=== PATIENT | female | born 1935 | race Caucasian/White ===

== ENCOUNTER 2021-03-03 16:03 | Emergency (ER) | payer MEDICARE ==
[2021-03-03] MEDS ORDERED: Ondansetron 4 MG Tab.DIS PO ONE ×2 (16:04→16:29)
[2021-03-03] MEDS ORDERED: Acetaminophen/HYDROcodone 325-5 MG Tab PO ONE ×3 (16:04→17:31)
--- NOTE | 2021-03-03 16:21 | EDM.PDOC ---
ED HPI GENERAL MEDICAL PROBLEM - General Chief Complaint: Back Pain or Injury Stated Complaint: BACK PAIN Time Seen by Provider: 03/03/21 16:20 Source of Information: Reports: Patient, Old Records, RN History Limitations: Reports: No Limitations - History of Present Illness INITIAL COMMENTS - FREE TEXT/NARRATIVE: 85 yo female had what sounds like a syncopal spell in her kitchen this past Thursday. She incurred pain to her R low back in the fall. She went to Dr. Harding, her primary care provider, on when an X-ray was done. The patients describes what sounds like a mild compression fx as the diagnosis. She was told to take OTC agents which she has been doing without relief. She has not been eating much since the fall and has some mild nausea. She has no pain at rest, but quite a bit of pain with movement. She is here with a friend. Onset: Sudden Onset Date: 02/25/21 Duration: Day(s):, Waxing/Waning Location: Reports: Back (low) Quality: Reports: Ache Severity: Moderate Improves with: Reports: Rest (lying makes the pain go away) Worsens with: Reports: Movement (especially standing) Context: Reports: Trauma Associated Symptoms: Reports: Nausea/Vomiting (no vomiting), Syncope (possible syncope as a cause of the fall). 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 Denies: Diaphoresis HEENT: Reports: No Symptoms Respiratory: Reports: No Symptoms Cardiovascular: Reports: No Symptoms Endocrine: Reports: No Symptoms GI/Abdominal: Reports: Nausea. Denies: Diarrhea, Vomiting : Reports: No Symptoms Musculoskeletal: Reports: Back Pain Skin: Reports: No Symptoms Neurological: Reports: No Symptoms Psychiatric: Reports: No Symptoms ED EXAM,LOWER BACK PAIN/INJURY - Physical Exam Exam: See Below Exam Limited By: No Limitations General Appearance: Alert Eye Exam: Bilateral Eye: Normal Inspection Ears: Normal External Exam, Normal Canal, Hearing Grossly Normal, Normal TMs Nose: Normal Inspection, No Blood Throat/Mouth: Normal Inspection, Normal Lips, Normal Oropharynx, Normal Voice, No Airway Compromise Head: Atraumatic, Normocephalic Neck: Normal Inspection Respiratory/Chest: No Respiratory Distress, Lungs Clear, Normal Breath Sounds, No Accessory Muscle Use Cardiovascular: Regular Rate, Rhythm, No Edema GI/Abdominal: Normal Bowel Sounds, Soft, Non-Tender, No Distention Back Exam: Normal Inspection, Other (minimal vertebral tenderness). No: CVA Tenderness (R), CVA Tenderness (L) Extremities: Normal Inspection, No Pedal Edema. No: Pedal Edema, Limited Range of Motion, Increased Warmth, Redness Neurological: Alert, Normal Mood/Affect, Normal Dorsiflexion, CN II-XII Intact, No Motor/Sensory Deficits, Oriented x 3 Psychiatric: Normal Affect, Normal Mood Skin Exam: Warm, Dry, Intact, Normal Color, No Rash Course - Vital Signs Last Recorded V/S: Last Vital Signs Temp 36.1 C 03/03/21 16:03 Pulse 63 03/03/21 17:35 Resp 18 03/03/21 16:03 BP 157/73 H 03/03/21 17:35 Pulse Ox 94 L 03/03/21 16:03 - Orders/Labs/Meds Orders: Active Orders 24 hr Category Date Time Status Pelvis 1V or 2V [CR] Stat Exams 03/03/21 17:41 Taken CULTURE URINE [RM] Stat Lab 03/03/21 18:15 Received Labs: Laboratory Tests 03/03/21 03/03/21 03/03/21 Range/Units 16:45 16:45 16:45 WBC 9.4 (3.0-10.3) x10-3/uL RBC 4.38 (3.60-5.20) x10(6)uL Hgb 13.1 (11.4-15.5) g/dL Hct 40.4 (34.2-48.2) % MCV 92.2 (76.7-100.5) fL MCH 29.8 (23.9-33.9) pg MCHC 32.3 (31.9-34.8) g/dL RDW 12.8 (12.3-16.5) % Plt Count 269 (151-488) x10(3)uL Sodium 140 (135-145) mmol/L Potassium 4.6 (3.5-5.3) mmol/L Chloride 102 (100-110) mmol/L Carbon Dioxide 26 (21-32) mmol/L BUN 21 H (7-18) mg/dL Creatinine 1.2 H (0.55-1.02) mg/dL Est Cr Clr Drug Dosing TNP Estimated GFR (MDRD) 43 L (>60) BUN/Creatinine Ratio 17.5 (9-20) Glucose 114 (80-116) mg/dL Calcium 8.8 (8.6-10.2) mg/dL Total Bilirubin 0.5 (0.1-1.3) mg/dL AST 13 (5-25) IU/L ALT 14 (12-36) U/L Alkaline Phosphatase 74 (56-112) IU/L Troponin I (4.0-60.3) pg/mL C-Reactive Protein 2.4 H (0.5-0.9) mg/dL Total Protein 7.1 (6.0-8.0) g/dL Albumin 3.1 L (3.2-4.6) g/dL Globulin 4.0 g/dL Albumin/Globulin Ratio 0.8 Urine Color (YELLOW) Urine Appearance (CLEAR) Urine pH (5.0-6.5) Ur Specific [place] (1.010-1.025) Urine Protein (NEGATIVE) mg/dL Urine Glucose (UA) (NORMAL) mg/dL Urine Ketones (NEGATIVE) mg/dL Urine Occult Blood (NEGATIVE) Urine Nitrite (NEGATIVE) Urine Bilirubin (NEGATIVE) Urine Urobilinogen (NEGATIVE) mg/dL Ur Leukocyte Esterase (NEGATIVE) Urine WBC (0-5) Ur Squamous Epith Cells (NS,R,O) Urine Bacteria (NS) 03/03/21 03/03/21 Range/Units 16:45 18:15 WBC (3.0-10.3) x10-3/uL RBC (3.60-5.20) x10(6)uL Hgb (11.4-15.5) g/dL Hct (34.2-48.2) % MCV (76.7-100.5) fL MCH (23.9-33.9) pg MCHC (31.9-34.8) g/dL RDW (12.3-16.5) % Plt Count (151-488) x10(3)uL Sodium (135-145) mmol/L Potassium (3.5-5.3) mmol/L Chloride (100-110) mmol/L Carbon Dioxide (21-32) mmol/L BUN (7-18) mg/dL Creatinine (0.55-1.02) mg/dL Est Cr Clr Drug Dosing Estimated GFR (MDRD) (>60) BUN/Creatinine Ratio (9-20) Glucose (80-116) mg/dL Calcium (8.6-10.2) mg/dL Total Bilirubin (0.1-1.3) mg/dL AST (5-25) IU/L ALT (12-36) U/L Alkaline Phosphatase (56-112) IU/L Troponin I 7.5 (4.0-60.3) pg/mL C-Reactive Protein (0.5-0.9) mg/dL Total Protein (6.0-8.0) g/dL Albumin (3.2-4.6) g/dL Globulin g/dL Albumin/Globulin Ratio Urine Color Yellow (YELLOW) Urine Appearance Slightly cloudy (CLEAR) Urine pH 5.0 (5.0-6.5) Ur Specific [place] 1.020 (1.010-1.025) Urine Protein Negative (NEGATIVE) mg/dL Urine Glucose (UA) Normal (NORMAL) mg/dL Urine Ketones 15 H (NEGATIVE) mg/dL Urine Occult Blood Negative (NEGATIVE) Urine Nitrite Negative (NEGATIVE) Urine Bilirubin Small H (NEGATIVE) Urine Urobilinogen Normal (NEGATIVE) mg/dL Ur Leukocyte Esterase Large H (NEGATIVE) Urine WBC 20-30 H (0-5) Ur Squamous Epith Cells Few H (NS,R,O) Urine Bacteria Moderate H (NS) Meds: Medications Discontinued Medications Generic Name Dose Route Start Last Admin Trade Name Freq PRN Reason Stop Dose Admin Hydrocodone Bitart/Acetaminophen 1 tab 03/03/21 16:20 03/03/21 16:28 Acetaminophen/Hydrocodone 325-5 Mg Tab PO 03/03/21 16:21 1 tab ONETIME ONE Administration Hydrocodone Bitart/Acetaminophen 1 tab 03/03/21 17:31 03/03/21 17:46 Acetaminophen/Hydrocodone 325-5 Mg Tab PO 03/03/21 17:32 1 tab ONETIME ONE Administration Ketorolac Tromethamine 30 mg 03/03/21 17:43 03/03/21 18:19 Ketorolac 30 Mg/Ml Sdv IM 03/03/21 17:44 30 mg ONETIME ONE Administration Ondansetron HCl 4 mg 03/03/21 16:29 03/03/21 16:34 Ondansetron 4 Mg Tab.Dis PO 03/03/21 16:30 4 mg ONETIME ONE Administration - Radiology Interpretation Free Text/Narrative:: pelvis X-ray-neg Departure - Departure Time of Disposition: 19:00 Disposition: Home, Self-Care 01 Condition: Fair Clinical Impression: Cystitis Low back pain Qualifiers: Chronicity: unspecified Back pain laterality: right Sciatica presence: without sciatica Qualified Code(s): M54.5 - Low back pain - Discharge Information *PRESCRIPTION DRUG MONITORING PROGRAM REVIEWED*: Not Applicable *COPY OF PRESCRIPTION DRUG MONITORING REPORT IN PATIENT [place]ICK[place]: Not Applicable Instructions: Acute Back Pain, Adult Referrals: Braulio Harding MD [Primary Care Provider] - Forms: ED Department Discharge Additional Instructions: Take ibuprofen 400 mg every 6 hrs with food for pain relief starting after midnight tonight. Add either acetaminophen OR Imogene for added relief. Recheck with Dr. Harding in 1-2 days. Drink ample fluids and eat plenty of fiber to prevent constipation from your pain meds. Take Zofran as needed for nausea control. Your Covid test and urine culture will be back in about 2 days. Use a walker to make getting around easier. Sepsis Event Note (ED) - Focused Exam Vital Signs: Vital Signs Temp Pulse Resp BP Pulse Ox 03/03/21 17:35 63 157/73 H 03/03/21 16:03 36.1 C 88 18 200/93 H 94 L - My Orders Last 24 Hours: My Active Orders 03/03/21 17:41 Pelvis 1V or 2V [CR] Stat 03/03/21 18:15 CULTURE URINE [RM] Stat - Assessment/Plan Last 24 Hours: My Active Orders 03/03/21 17:41 Pelvis 1V or 2V [CR] Stat 03/03/21 18:15 CULTURE URINE [RM] Stat
[2021-03-03] MEDS ORDERED: Ketorolac 30 MG/ML SDV IM ONE (17:43)
--- NOTE | 2021-03-04 12:04 | CR ---
PELVIS INDICATION: Fell Thursday - one week prior with pain with weightbearing right buttock area. 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 Sclerotic density in the left femoral neck most likely represents a benign bone island. Sacroiliac joints and hip joints appear to be intact with only very minimal degenerative changes at the left hip joint. An acute fracture or dislocation was not identified. IMPRESSION: No acute fracture or dislocation. If symptoms persist - if occult fracture site is suspected clinically, CT or possibly nuclear bone imaging may be helpful for further evaluation. [id number]
== END 2021-03-03 19:35 | disposition home or self-care (01) ==
LOC: FB.ED 16:03
DX: N30.90 Cystitis, unspecified without hematuria (principal)
CPT/HCPCS: 36415; 72170; 80053; 81001; 84484; 85027; 86140; 87086; 96372; 99283; A9270; J1885

== ENCOUNTER 2021-04-01 14:48 | Observation (INO) | payer MEDICARE ==
[2021-04-01] MEDS ORDERED: Sodium Chloride 0.9% 1,000 ML IV ONE ×2 (16:48→22:11)
[2021-04-01] MEDS ORDERED: Acetaminophen 500 MG Tab PO ONE (16:57)
--- NOTE | 2021-04-01 20:44 | EDM.PDOC ---
ED HPI GENERAL MEDICAL PROBLEM - General Chief Complaint: Neurological Problem Stated Complaint: DECREASED LEVEL OF CONSCIOUSNESS Time Seen by Provider: 04/01/21 15:15 Source of Information: Reports: Patient, Family History Limitations: Reports: No Limitations - History of Present Illness INITIAL COMMENTS - FREE TEXT/NARRATIVE: c/o back pain pt here with her sister, her brother Steven has POA, I spoke with Steven at [phone] and he agreed with plan pt had lived in her own home, she had a compression fx identified at L1 at [facility] on 02-28-21 had been in her own home, - Related Data Allergies Allergy/AdvReac Type Severity Reaction Status Date / Time No Known Allergies Allergy Verified 04/01/21 15:05 Home Meds: Home Meds Acetaminophen/HYDROcodone [HYDROcodone-Acetaminophen 5-325 MG *] 1 - 2 tab PO Q6H PRN #13 each 03/03/21 [Rx] Ondansetron [Zofran ODT] 4 mg PO Q6H PRN #5 tab.dis 03/03/21 [Rx] Acetaminophen [Tylenol] 650 mg PO Q4H PRN 04/01/21 [History] Aspirin [Halfprin] 81 mg PO DAILY 04/01/21 [History] Calcium Carbonate [Tums] 500 mg PO DAILY 04/01/21 [History] Calcium Cit/Mgox/Vit D3/B6/Min [Calcium Citrate Plus Tablet] 950 mg PO BID 04/01/21 [History] Cyanocobalamin (Vitamin B-12) [B-12] 1,000 mcg PO DAILY 04/01/21 [History] Diclofenac Sodium [Voltaren 1% Gel] 4 gm TOP QID 04/01/21 [History] Famotidine 40 mg PO DAILY 04/01/21 [History] Fish Oil/Borage/Flax/Om3,6,9 1 [[place] 3-6-9 1,200 mg Softgel] 1,000 mg PO DAILY 04/01/21 [History] Flaxseed/Omega3,6,9/Fatty Acid [Flax Seed Oil 1,300 mg Softgel] 1,000 mg PO DAILY 04/01/21 [History] Furosemide 20 mg PO DAILY 04/01/21 [History] Gabapentin [Neurontin] 100 mg PO DAILY 04/01/21 [History] Levothyroxine [Synthroid] 50 mcg PO ACBREAKFAST 04/01/21 [History] Mirtazapine [Remeron] 15 mg PO BEDTIME 04/01/21 [History] Potassium Chloride 20 meq PO DAILY 04/01/21 [History] Simvastatin [Zocor] 20 mg PO BEDTIME 04/01/21 [History] amLODIPine [Norvasc] 2.5 mg PO BEDTIME 04/01/21 [History] lisinopriL [Lisinopril] 20 mg PO DAILY 04/01/21 [History] polyethylene glycoL 3350 [MiraLAX] 17 gm PO DAILY 04/01/21 [History] Past Medical History HEENT History: Reports: None Cardiovascular History: Reports: High Cholesterol, Hypertension Respiratory History: Reports: None Gastrointestinal History: Reports: GERD Genitourinary History: Reports: None [employer] History: Reports: None Musculoskeletal History: Reports: Fracture, Osteoporosis, Other (See Below) Other Musculoskeletal History: vertebre compression fracture Neurological History: Reports: None Psychiatric History: Reports: None Endocrine/Metabolic History: Reports: Hypothyroidism Hematologic History: Reports: None Immunologic History: Reports: None Oncologic (Cancer) History: Reports: None Dermatologic History: Reports: None - Past Surgical History Head Surgeries/Procedures: Reports: None HEENT Surgical History: Reports: None Cardiovascular Surgical History: Reports: None Respiratory Surgical History: Reports: None GI Surgical History: Reports: None Female Surgical History: Reports: None Endocrine Surgical History: Reports: None Neurological Surgical History: Reports: None Oncologic Surgical History: Reports: None Dermatological Surgical History: Reports: None Social & Family History - Tobacco Use Tobacco Use Status *Q: Former Tobacco User Used Tobacco, but Quit: Yes Month/Year Tobacco Last Used: 1999 - Caffeine Use Caffeine Use: Reports: Coffee, Soda - Recreational Drug Use Recreational Drug Use: No ED ROS GENERAL - Review of Systems Review Of Systems: See Below Constitutional: Reports: Decreased Appetite HEENT: Reports: No Symptoms Respiratory: Reports: No Symptoms Cardiovascular: Reports: No Symptoms Endocrine: Reports: No Symptoms GI/Abdominal: Reports: No Symptoms : Reports: No Symptoms Musculoskeletal: Reports: Back Pain Skin: Reports: No Symptoms Neurological: Reports: No Symptoms Psychiatric: Reports: No Symptoms Hematologic/Lymphatic: Reports: No Symptoms Immunologic: Reports: No Symptoms ED EXAM, GENERAL - Physical Exam Exam: See Below Exam Limited By: Altered Mental Status General Appearance: Alert, Other (very dehydrated with marked shrunken skin, irritable and disagreeable and argumentative but did not try to move independently) Nose: Normal Inspection Throat/Mouth: Normal Voice, No Airway Compromise Head: Atraumatic, Normocephalic Neck: Normal Inspection, Supple, Non-Tender, Full Range of Motion Respiratory/Chest: No Respiratory Distress, Lungs Clear, Chest Non-Tender Cardiovascular: Regular Rate, Rhythm, No Edema, Other (2/6 SHERINE at LSB, quiet precordium) GI/Abdominal: Soft, Non-Tender, No Organomegaly, No Distention Back Exam: Other (nonspecific mild tender across upper back, no definite tender of t-spine, 1+ tender at L1) Neurological: Alert, CN II-XII Intact, No Motor/Sensory Deficits Psychiatric: Other (mild agitation without hostility, cognitive deficits with memory problems) Skin Exam: Warm, Dry, Intact, Normal Color, No Rash Lymphatic: No Adenopathy Course - Vital Signs Last Recorded V/S: Last Vital Signs Temp 36.1 C 04/02/21 11:00 Pulse 84 04/02/21 11:00 Resp 18 04/02/21 11:00 BP 138/69 04/02/21 11:00 Pulse Ox 94 L 04/02/21 11:00 - Orders/Labs/Meds Orders: Active Orders 24 hr Category Date Time Status CULTURE URINE [RM] Stat Lab 04/02/21 09:17 Ordered D5 1/2 NS w/ 20 mEq/L KCl 1,000 ml Med 04/02/21 08:15 Ordered IV ASDIRECTED Dextrose 5 %-0.2 % NaCl [Dextrose 5%-1/4 NS] 1,000 ml Med 04/02/21 09:15 Ordered IV ASDIRECTED Medication Orders Potassium Chloride/Dextrose/Sod Cl (D5 1/2 Ns W/ 20 Meq/L Kcl) 1,000 mls @ 50 mls/hr IV ASDIRECTED KILLIAN Last Admin: 04/02/21 08:53 Dose: 50 mls/hr Documented by: MICAH Dextrose/Sodium Chloride (Dextrose 5%-1/4 Ns) 1,000 mls @ 75 mls/hr IV ASDIRECTED KILLIAN Labs: Laboratory Tests 04/01/21 04/01/21 04/01/21 Range/Units 17:21 17:21 17:21 WBC 15.9 H (3.0-10.3) x10-3/uL RBC 4.80 (3.60-5.20) x10(6)uL Hgb 14.3 (11.4-15.5) g/dL Hct 44.3 (34.2-48.2) % MCV 92.3 (76.7-100.5) fL MCH 29.8 (23.9-33.9) pg MCHC 32.2 (31.9-34.8) g/dL RDW 14.0 (12.3-16.5) % Plt Count 325 (151-488) x10(3)uL MPV 8.7 (7.1-12.4) fL Neut % (Auto) (30.8-76.2) % Lymph % (Auto) (18.4-52.1) % [place] % (Auto) (4.4-15.7) % Eos % (Auto) (0.6-8.1) % Baso % (Auto) (0.2-1.5) % Neut # (Auto) (1.5-6.3) x10-3/uL Lymph # (Auto) (1.0-4.4) x10-3/uL [place] # (Auto) (0.3-1.0) x10-3/uL Eos # (Auto) (0.0-0.8) x10-3/uL Baso # (Auto) (0.0-0.1) x10-3/uL Add Manual Diff Yes Neutrophils % (Manual) 82 (46-82) % Band Neutrophils % 2 (0-6) % Lymphocytes % (Manual) 10 L (13-37) % Monocytes % (Manual) 6 (4-12) % Sodium 141 (135-145) mmol/L Potassium 5.3 (3.5-5.3) mmol/L Chloride 103 (100-110) mmol/L Carbon Dioxide 25 (21-32) mmol/L BUN 60 H D (7-18) mg/dL Creatinine 2.7 H* (0.55-1.02) mg/dL Est Cr Clr Drug Dosing TNP Estimated GFR (MDRD) 17 L (>60) BUN/Creatinine Ratio 22.2 H (9-20) Glucose 106 (80-116) mg/dL Calcium 10.4 H (8.6-10.2) mg/dL Total Bilirubin 0.7 (0.1-1.3) mg/dL AST 18 D (5-25) IU/L ALT 26 D (12-36) U/L Alkaline Phosphatase 109 (56-112) IU/L Troponin I (4.0-60.3) pg/mL C-Reactive Protein 1.5 H (0.5-0.9) mg/dL Total Protein 7.2 (6.0-8.0) g/dL Albumin 3.3 (3.2-4.6) g/dL Globulin 3.9 g/dL Albumin/Globulin Ratio 0.9 Urine Color (YELLOW) Urine Appearance (CLEAR) Urine pH (5.0-6.5) Ur Specific [place] (1.010-1.025) Urine Protein (NEGATIVE) mg/dL Urine Glucose (UA) (NORMAL) mg/dL Urine Ketones (NEGATIVE) mg/dL Urine Occult Blood (NEGATIVE) Urine Nitrite (NEGATIVE) Urine Bilirubin (NEGATIVE) Urine Urobilinogen (NEGATIVE) mg/dL Ur Leukocyte Esterase (NEGATIVE) Urine WBC (0-5) Ur Squamous Epith Cells (NS,R,O) Urine Bacteria (NS) SARS-CoV-2 RNA (YELITZA) (NEGATIVE) 04/01/21 04/01/21 04/02/21 Range/Units 17:21 18:25 08:15 WBC (3.0-10.3) x10-3/uL RBC (3.60-5.20) x10(6)uL Hgb (11.4-15.5) g/dL Hct (34.2-48.2) % MCV (76.7-100.5) fL MCH (23.9-33.9) pg MCHC (31.9-34.8) g/dL RDW (12.3-16.5) % Plt Count (151-488) x10(3)uL MPV (7.1-12.4) fL Neut % (Auto) (30.8-76.2) % Lymph % (Auto) (18.4-52.1) % [place] % (Auto) (4.4-15.7) % Eos % (Auto) (0.6-8.1) % Baso % (Auto) (0.2-1.5) % Neut # (Auto) (1.5-6.3) x10-3/uL Lymph # (Auto) (1.0-4.4) x10-3/uL [place] # (Auto) (0.3-1.0) x10-3/uL Eos # (Auto) (0.0-0.8) x10-3/uL Baso # (Auto) (0.0-0.1) x10-3/uL Add Manual Diff Neutrophils % (Manual) (46-82) % Band Neutrophils % (0-6) % Lymphocytes % (Manual) (13-37) % Monocytes % (Manual) (4-12) % Sodium (135-145) mmol/L Potassium (3.5-5.3) mmol/L Chloride (100-110) mmol/L Carbon Dioxide (21-32) mmol/L BUN (7-18) mg/dL Creatinine (0.55-1.02) mg/dL Est Cr Clr Drug Dosing Estimated GFR (MDRD) (>60) BUN/Creatinine Ratio (9-20) Glucose (80-116) mg/dL Calcium (8.6-10.2) mg/dL Total Bilirubin (0.1-1.3) mg/dL AST (5-25) IU/L ALT (12-36) U/L Alkaline Phosphatase (56-112) IU/L Troponin I 16.6 (4.0-60.3) pg/mL C-Reactive Protein (0.5-0.9) mg/dL Total Protein (6.0-8.0) g/dL Albumin (3.2-4.6) g/dL Globulin g/dL Albumin/Globulin Ratio Urine Color Yellow (YELLOW) Urine Appearance Cloudy (CLEAR) Urine pH 5.0 (5.0-6.5) Ur Specific [place] 1.020 (1.010-1.025) Urine Protein Negative (NEGATIVE) mg/dL Urine Glucose (UA) Normal (NORMAL) mg/dL Urine Ketones 15 H (NEGATIVE) mg/dL Urine Occult Blood Negative (NEGATIVE) Urine Nitrite Negative (NEGATIVE) Urine Bilirubin Small H (NEGATIVE) Urine Urobilinogen Normal (NEGATIVE) mg/dL Ur Leukocyte Esterase Large H (NEGATIVE) Urine WBC 30-40 H (0-5) Ur Squamous Epith Cells Moderate H (NS,R,O) Urine Bacteria Many H (NS) SARS-CoV-2 RNA (YELITZA) Negative (NEGATIVE) 04/02/21 04/02/21 04/02/21 Range/Units 08:30 08:30 08:30 WBC 12.5 H (3.0-10.3) x10-3/uL RBC 4.47 (3.60-5.20) x10(6)uL Hgb 13.4 (11.4-15.5) g/dL Hct 41.6 (34.2-48.2) % MCV 93.2 (76.7-100.5) fL MCH 30.1 (23.9-33.9) pg MCHC 32.3 (31.9-34.8) g/dL RDW 13.6 (12.3-16.5) % Plt Count 261 (151-488) x10(3)uL MPV 8.4 (7.1-12.4) fL Neut % (Auto) 80.8 H (30.8-76.2) % Lymph % (Auto) 10.5 L (18.4-52.1) % [place] % (Auto) 7.6 (4.4-15.7) % Eos % (Auto) 0.7 (0.6-8.1) % Baso % (Auto) 0.4 (0.2-1.5) % Neut # (Auto) 10.1 H (1.5-6.3) x10-3/uL Lymph # (Auto) 1.3 (1.0-4.4) x10-3/uL [place] # (Auto) 0.9 (0.3-1.0) x10-3/uL Eos # (Auto) 0.1 (0.0-0.8) x10-3/uL Baso # (Auto) 0.0 (0.0-0.1) x10-3/uL Add Manual Diff Neutrophils % (Manual) (46-82) % Band Neutrophils % (0-6) % Lymphocytes % (Manual) (13-37) % Monocytes % (Manual) (4-12) % Sodium 145 (135-145) mmol/L Potassium 4.7 (3.5-5.3) mmol/L Chloride 109 D (100-110) mmol/L Carbon Dioxide 22 (21-32) mmol/L BUN 60 H (7-18) mg/dL Creatinine 2.4 H* (0.55-1.02) mg/dL Est Cr Clr Drug Dosing TNP Estimated GFR (MDRD) 19 L (>60) BUN/Creatinine Ratio 25.0 H (9-20) Glucose 84 (80-116) mg/dL Calcium 9.0 (8.6-10.2) mg/dL Total Bilirubin (0.1-1.3) mg/dL AST (5-25) IU/L ALT (12-36) U/L Alkaline Phosphatase (56-112) IU/L Troponin I (4.0-60.3) pg/mL C-Reactive Protein 1.5 H (0.5-0.9) mg/dL Total Protein (6.0-8.0) g/dL Albumin (3.2-4.6) g/dL Globulin g/dL Albumin/Globulin Ratio Urine Color (YELLOW) Urine Appearance (CLEAR) Urine pH (5.0-6.5) Ur Specific [place] (1.010-1.025) Urine Protein (NEGATIVE) mg/dL Urine Glucose (UA) (NORMAL) mg/dL Urine Ketones (NEGATIVE) mg/dL Urine Occult Blood (NEGATIVE) Urine Nitrite (NEGATIVE) Urine Bilirubin (NEGATIVE) Urine Urobilinogen (NEGATIVE) mg/dL Ur Leukocyte Esterase (NEGATIVE) Urine WBC (0-5) Ur Squamous Epith Cells (NS,R,O) Urine Bacteria (NS) SARS-CoV-2 RNA (YELITZA) (NEGATIVE) Meds: Medications Generic Name Dose Route Start Last Admin Trade Name Freq PRN Reason Stop Dose Admin Potassium Chloride/Dextrose/Sod Cl 1,000 mls @ 50 mls/hr 04/02/21 08:15 04/02/21 08:53 D5 1/2 Ns W/ 20 Meq/L Kcl IV 50 mls/hr ASDIRECTED KILLIAN Administration Dextrose/Sodium Chloride 1,000 mls @ 75 mls/hr 04/02/21 09:15 Dextrose 5%-1/4 Ns IV ASDIRECTED KILLIAN Discontinued Medications Generic Name Dose Route Start Last Admin Trade Name Freq PRN Reason Stop Dose Admin Acetaminophen 1,000 mg 04/01/21 16:57 04/01/21 18:30 Acetaminophen 500 Mg Tab PO 04/01/21 16:58 1,000 mg ONETIME ONE Administration Amlodipine Besylate 2.5 mg 04/02/21 08:56 04/02/21 09:38 Amlodipine 2.5 Mg Tab PO 04/02/21 08:57 Not Given ONETIME ONE Aspirin 81 mg 04/02/21 08:56 04/02/21 09:37 Aspirin 81 Mg Tab.Chew PO 04/02/21 08:57 81 mg ONETIME ONE Administration Ceftriaxone Sodium 1 gm 04/02/21 09:17 04/02/21 09:37 Ceftriaxone 1 Gm Vial IVPUSH 04/02/21 09:18 1 gm NOW ONE Administration Famotidine 40 mg 04/02/21 08:56 04/02/21 09:37 Famotidine 20 Mg Tab PO 04/02/21 08:57 40 mg ONETIME ONE Administration Sodium Chloride 1,000 mls @ 999 mls/hr 04/01/21 16:48 04/01/21 18:30 Normal Saline IV 04/01/21 17:48 999 mls/hr .BOLUS ONE Administration Sodium Chloride 1,000 mls @ 999 mls/hr 04/01/21 22:11 04/02/21 06:54 Normal Saline IV 04/01/21 23:11 999 mls/hr .BOLUS ONE Administration - Re-Assessments/Exams Free Text/Narrative Re-Assessment/Exam: 04/01/21 22:15 pt with c/o upper thoracic pain at ~T3 or T4 CT of t-spine showed no compression fx, however there is ~50% compression fx of L1 that has progressed somewhat c/w previous per Dr Valdez pt goes to [facility], on their wait list as there are no open meds pt insisted on going home although she is quite dehydrated with creat 1.2 last month, now 2.7 today, considerable dec'd skin turgor, not able to produce a urine, pt not able to care for herself and not able to eat and drink reluctantly, did agree to stay here for now for further treatment will keep pt on an extended ED stay while a bed will hopefully open up at [facility], no open beds here, no open beds at [facility] 04/02/21 12:00 pt on wait list at [facility] still, however MRYA Barillas called [facility] and they said that there is "no way" that pt would be able to be transferred today she did have some mild sundowning during the night, slept most of the night pt not willing to eat bfast or lunch BUN/creat slightly better today c/w yesterday after 2 liter NS, will continue maintenance fluids d/w hospitalist Dr Hensley who accepted pt in admission to obs bed here pendi ng transfer later to [facility], called placed to brother Steven who is POA. I spoke with Steven's who said that Steven is visiting someone in the hospital in [place] and would call me back. Departure - Departure Time of Disposition: 11:59 Disposition: Refer to Observation Condition: Fair Clinical Impression: Compression fracture of L1 lumbar vertebra, Moderate dehydration, Acute on chronic renal failure, Poor fluid intake, Elevated C-reactive protein (CRP), Elevated WBC count, Uncontrolled pain, Refuses to eat, Sundowning - Discharge Information *PRESCRIPTION DRUG MONITORING PROGRAM REVIEWED*: Not Applicable *COPY OF PRESCRIPTION DRUG MONITORING REPORT IN PATIENT NICKOLAS: Not Applicable Referrals: Braulio Harding MD [Primary Care Provider] - Forms: ED Department Discharge Sepsis Event Note (ED) - Evaluation Sepsis Screening Result: No Definite Risk - Focused Exam Vital Signs: Vital Signs Temp Pulse Resp BP BP Pulse Ox 04/02/21 11:00 36.1 C 84 18 138/69 94 L 04/02/21 09:38 99/77 04/02/21 08:30 36.7 C 79 20 99/77 95 04/02/21 06:45 36.2 C 78 20 127/71 95 - My Orders Last 24 Hours: My Active Orders 04/02/21 08:15 D5 1/2 NS w/ 20 mEq/L KCl 1,000 ml IV ASDIRECTED 04/02/21 09:15 Dextrose 5 %-0.2 % NaCl [Dextrose 5%-1/4 NS] 1,000 ml IV ASDIRECTED 04/02/21 09:17 CULTURE URINE [RM] Stat - Assessment/Plan Last 24 Hours: My Active Orders 04/02/21 08:15 D5 1/2 NS w/ 20 mEq/L KCl 1,000 ml IV ASDIRECTED 04/02/21 09:15 Dextrose 5 %-0.2 % NaCl [Dextrose 5%-1/4 NS] 1,000 ml IV ASDIRECTED 04/02/21 09:17 CULTURE URINE [] Stat
--- NOTE | 2021-04-02 08:14 | CT ---
CT THORACIC SPINE WITHOUT CONTRAST INDICATION: Pain in upper thoracic spine. History of compression fracture five weeks prior. Increased pain last two days. TECHNIQUE: Spiral 2.5 mm axial sections were obtained through the thoracic spine and then repeated for the uppermost lumbar spine and lower thoracic spine with sagittal and coronal reconstructions, 04/01/21. TOTAL EXAM DLP: 973.07 mGy/cm. FINDINGS: A severely comminuted, at least 50% compression fracture at L1 is noted with posterior deviation-retrolisthesis of fracture fragments of mild degree. Severe bridging hyperostotic changes are noted anteriorly at T10 through T12 with vacuum disc phenomena noted at T8-9, T9-10, compatible with degenerative disc disease. A trivial degree of anterior vertebral body volume loss is noted at T8 of indeterminate age, since no old films are available for comparison at this time. Incidentally noted were calcifications in the arch of the aorta and descending aorta with fibrotic-appearing changes in the lungs, mostly on the right posteriorly. Comparison study from [facility] dated 02/28/21 was a lumbar spine x-ray and showed a compression fracture at L1, as on the current study. The degree of compression may be somewhat increased on the current study and there is posterior-retropulsion of fracture fragments into the spinal canal at this time. IMPRESSION: Comparison with previous plain x-rays from 02/28/21 from [facility] shows slightly increased compression at L1. There also was noted retropulsion of fracture fragments of the L1 vertebral body with what appears to be more severe comminution than was present on the previous study. Report was called to Dr. Haider at 1815 hours. [facility]
[2021-04-02] MEDS ORDERED: D5 1/2 NS w/ 20 mEq/L KCl 1,000 ML IV SCH (08:15)
[2021-04-02] MEDS ORDERED: Famotidine 20 MG Tab PO ONE (08:56)
[2021-04-02] MEDS ORDERED: Aspirin 81 MG Tab.Chew PO ONE (08:56)
[2021-04-02] MEDS ORDERED: amLODIPine 2.5 MG Tab PO ONE (08:56)
[2021-04-02] MEDS ORDERED: Dextrose 5 %-0.2 % NaCl 1,000 ML IV SCH (09:15)
[2021-04-02] MEDS ORDERED: cefTRIAXone 1 GM Vial IVPUSH ONE (09:17)
--- NOTE | 2021-04-02 11:45 | CR ---
CHEST ONE VIEW INDICATION: Weak, dehydrated, increased CRP/WBC, question pneumonia. FINDINGS: An AP portable upright view of the chest 04/02/21 - no comparisons. The heart did not appear enlarged. The aorta is tortuous with calcification of the arch. Degenerative changes in the lower thoracic spine. A definite active infiltrate or effusion was not identified. No free air was noted under the hemidiaphragm leaves. IMPRESSION: No acute process. MTDD
[2021-04-02] MEDS: Sodium Chloride 0.9% 1,000 ML IV SCH (14:20)
[2021-04-02] MEDS: Acetaminophen 500 MG Tab PO SCH ×2 (14:26→20:36)
[2021-04-02] MEDS: Ibuprofen 200 MG Tab PO SCH ×2 (14:27→20:35)
--- NOTE | 2021-04-02 16:14 | PCM.HP.2 ---
H&P History of Present Illness - General Date of Service: 04/02/21 Admit Problem/Dx: Admission Diagnosis/Problem Admission Diagnosis/Problem Back pain Source of Information: Patient, Provider History Limitations: Reports: Altered Mental Status - History of Present Illness Initial Comments - Free Text/Narative: Larisa presented to ER yesterday with back pain, and altered mental status. She is poor historian. She had L1 compression fracture on 02/28/21 at [facility]. Her PCP has been trying to get her into neurosurgery but has not seen so far. They had increased her Tramadol to 50 mg bid and added Mobic 7.5 mg daily but that order did not get over to [facility]. She has had poor appetite and oral intake due to pain, lays in bed on her back as that is position of comfort per her PCP and Olivia at [facility] both verified this. Unable to get review of systems due to historian. CT thoracic spine showed worsening of her L1 compression fracture with retropulsion of some fragments. She has been on hold in ER awaiting admission at [facility] for neurosurgery consult, [facility] thought they'd be able to take today but did not have open beds so Dr Haider asked to admit for IVF, IV antibiotics for UTI and pain management for her L1 fracture as [facility] did not know when they would be able to take her. - Related Data Allergies/Adverse Reactions: Allergies Allergy/AdvReac Type Severity Reaction Status Date / Time No Known Allergies Allergy Verified 04/01/21 15:05 Home Medications: Home Meds Acetaminophen [Tylenol] 650 mg PO Q4H PRN 04/01/21 [History] Aspirin [Halfprin] 81 mg PO DAILY 04/01/21 [History] Calcium Carbonate [Tums] 500 mg PO DAILY 04/01/21 [History] Calcium Cit/Mgox/Vit D3/B6/Min [Calcium Citrate Plus Tablet] 950 mg PO BID 04/01/21 [History] Cyanocobalamin (Vitamin B-12) [B-12] 1,000 mcg PO DAILY 04/01/21 [History] Diclofenac Sodium [Voltaren 1% Gel] 4 gm TOP QID 04/01/21 [History] Famotidine 20 mg PO DAILY 04/01/21 [History] Fish Oil/Borage/Flax/Om3,6,9 1 [[place] 3-6-9 1,200 mg Softgel] 1,000 mg PO DAILY 04/01/21 [History] Flaxseed/Omega3,6,9/Fatty Acid [Flax Seed Oil 1,300 mg Softgel] 1,000 mg PO DAILY 04/01/21 [History] Furosemide 20 mg PO DAILY 04/01/21 [History] Gabapentin [Neurontin] 100 mg PO BEDTIME 04/01/21 [History] Levothyroxine [Synthroid] 50 mcg PO ACBREAKFAST 04/01/21 [History] Mirtazapine [Remeron] 15 mg PO BEDTIME 04/01/21 [History] Potassium Chloride 20 meq PO DAILY 04/01/21 [History] Simvastatin [Zocor] 20 mg PO BEDTIME 04/01/21 [History] amLODIPine [Norvasc] 2.5 mg PO BEDTIME 04/01/21 [History] lisinopriL [Lisinopril] 20 mg PO DAILY 04/01/21 [History] polyethylene glycoL 3350 [MiraLAX] 17 gm PO DAILY 04/01/21 [History] Acetaminophen [Acetaminophen Extra Strength] 1,000 mg PO Q8H PRN 04/02/21 [History] Loperamide HCl [Imodium A-D] 2 mg PO BID PRN 04/02/21 [History] Magnesium Hydroxide [Milk of Magnesia] 30 ml PO DAILY PRN 04/02/21 [History] [place]-3/DHA/Epa/Fish Oil [[place]-3 Fish Oil 1,000 MG Sfgl] 2,000 mg PO DAILY 04/02/21 [History] traMADol [Ultram] 25 mg PO BID PRN 04/02/21 [History] Past Medical History HEENT History: Reports: Impaired Vision, Macular Degeneration Cardiovascular History: Reports: High Cholesterol, Hypertension Respiratory History: Reports: SOB Gastrointestinal History: Reports: GERD, Other (See Below) Other Gastrointestinal History: DIVERTICULOSIS OF COLON Genitourinary History: Reports: Urinary Incontinence, Other (See Below) Other Genitourinary History: STAGE 3 CHRONIC KIDNEY DISEASE DIRECTOR OF STATE History: Reports: None Musculoskeletal History: Reports: Fracture, Osteoporosis, Other (See Below) Other Musculoskeletal History: vertebre compression fracture Neurological History: Reports: Other (See Below) Other Neuro History: PT FORGETFUL TO TIME AND PLACE AT TIMES. Psychiatric History: Reports: Anxiety, Other (See Below) Other Psychiatric History: GENERALIZED ANXIETY DISORDER. Endocrine/Metabolic History: Reports: Diabetes, Type II, Hypothyroidism Hematologic History: Reports: None Immunologic History: Reports: None Oncologic (Cancer) History: Reports: None Dermatologic History: Reports: None - Past Surgical History Head Surgeries/Procedures: Reports: None Cardiovascular Surgical History: Reports: None Respiratory Surgical History: Reports: None GI Surgical History: Reports: None, Colonoscopy Endocrine Surgical History: Reports: None Neurological Surgical History: Reports: None Musculoskeletal Surgical History: Reports: Other (See Below) Other Musculoskeletal Surgeries/Procedures:: DEGENERATIVE DISC DISEASE. Oncologic Surgical History: Reports: None Dermatological Surgical History: Reports: None Social & Family History - Family History Family Medical History: Unobtainable - Tobacco Use Tobacco Use Status *Q: Former Tobacco User Used Tobacco, but Quit: Yes Month/Year Tobacco Last Used: 05/31/2003 - Caffeine Use Caffeine Use: Reports: Coffee - Recreational Drug Use Recreational Drug Use: No H&P Review of Systems - Review of Systems: Review Of Systems: Unable To Obtain Reason Not Obtained: altered mental status Exam - Exam Exam: See Below - Vital Signs Vital Signs: Last Vital Signs Temp 96.9 F 04/02/21 11:00 Pulse 84 04/02/21 11:00 Resp 18 04/02/21 11:00 BP 138/69 04/02/21 11:00 Pulse Ox 94 L 04/02/21 11:00 Weight: 175 lb 6 oz - Exam General: Alert, Oriented (person, but not place or time, confused), Cooperative HEENT: PERRLA, Conjunctiva Clear, EOMI, Hearing Intact. No: Mucosa Moist & [place] Neck: Trachea Midline Lungs: Normal Respiratory Effort, Decreased Breath Sounds (throughout). No: Crackles, Wheezing Cardiovascular: Regular Rate, Regular Rhythm GI/Abdominal Exam: Normal Bowel Sounds, Soft, Non-Tender, No Distention (Female) Exam: Deferred Rectal (Female) Exam: Deferred Back Exam: Decreased Range of Motion, Vertebral Tenderness (mild TTP over L1 and L5/S1). No: Normal Inspection, CVA Tenderness (R), CVA Tenderness (L), Paraspinal Tenderness Extremities: No Pedal Edema, Normal Capillary Refill Peripheral Pulses: 2+: Radial (L), Radial (R), Posterior Tibial (L), Posterior Tibial (R), Dorsalis Pedis (L), Dorsalis Pedis (R) Skin: Warm, Dry, Intact, Ecchymosis (right posterior ribs t12, right buttock, old scattered throughout lower legs, abrasion from stockings on BLE. Abrasion to right forehead, maxilla) Neurological: Cranial Nerves Intact, Strength Equal Bilateral, Normal Speech, Sensation Intact - Patient Data Lab Results Last 24 hrs: Laboratory Results - last 24 hr 04/01/21 04/01/21 04/01/21 Range/Units 17:21 17:21 17:21 WBC 15.9 H (3.0-10.3) x10-3/uL RBC 4.80 (3.60-5.20) x10(6)uL Hgb 14.3 (11.4-15.5) g/dL Hct 44.3 (34.2-48.2) % MCV 92.3 (76.7-100.5) fL MCH 29.8 (23.9-33.9) pg MCHC 32.2 (31.9-34.8) g/dL RDW 14.0 (12.3-16.5) % Plt Count 325 (151-488) x10(3)uL MPV 8.7 (7.1-12.4) fL Neut % (Auto) (30.8-76.2) % Lymph % (Auto) (18.4-52.1) % Brown % (Auto) (4.4-15.7) % Eos % (Auto) (0.6-8.1) % Baso % (Auto) (0.2-1.5) % Neut # (Auto) (1.5-6.3) x10-3/uL Lymph # (Auto) (1.0-4.4) x10-3/uL Brown # (Auto) (0.3-1.0) x10-3/uL Eos # (Auto) (0.0-0.8) x10-3/uL Baso # (Auto) (0.0-0.1) x10-3/uL Add Manual Diff Yes Neutrophils % (Manual) 82 (46-82) % Band Neutrophils % 2 (0-6) % Lymphocytes % (Manual) 10 L (13-37) % Monocytes % (Manual) 6 (4-12) % Sodium 141 (135-145) mmol/L Potassium 5.3 (3.5-5.3) mmol/L Chloride 103 (100-110) mmol/L Carbon Dioxide 25 (21-32) mmol/L BUN 60 H D (7-18) mg/dL Creatinine 2.7 H* (0.55-1.02) mg/dL Est Cr Clr Drug Dosing TNP Estimated GFR (MDRD) 17 L (>60) BUN/Creatinine Ratio 22.2 H (9-20) Glucose 106 (80-116) mg/dL Calcium 10.4 H (8.6-10.2) mg/dL Total Bilirubin 0.7 (0.1-1.3) mg/dL AST 18 D (5-25) IU/L ALT 26 D (12-36) U/L Alkaline Phosphatase 109 (56-112) IU/L Troponin I (4.0-60.3) pg/mL C-Reactive Protein 1.5 H (0.5-0.9) mg/dL Total Protein 7.2 (6.0-8.0) g/dL Albumin 3.3 (3.2-4.6) g/dL Globulin 3.9 g/dL Albumin/Globulin Ratio 0.9 Urine Color (YELLOW) Urine Appearance (CLEAR) Urine pH (5.0-6.5) Ur Specific [place] (1.010-1.025) Urine Protein (NEGATIVE) mg/dL Urine Glucose (UA) (NORMAL) mg/dL Urine Ketones (NEGATIVE) mg/dL Urine Occult Blood (NEGATIVE) Urine Nitrite (NEGATIVE) Urine Bilirubin (NEGATIVE) Urine Urobilinogen (NEGATIVE) mg/dL Ur Leukocyte Esterase (NEGATIVE) Urine WBC (0-5) Ur Squamous Epith Cells (NS,R,O) Urine Bacteria (NS) SARS-CoV-2 RNA (YELITZA) (NEGATIVE) 04/01/21 04/01/21 04/02/21 Range/Units 17:21 18:25 08:15 WBC (3.0-10.3) x10-3/uL RBC (3.60-5.20) x10(6)uL Hgb (11.4-15.5) g/dL Hct (34.2-48.2) % MCV (76.7-100.5) fL MCH (23.9-33.9) pg MCHC (31.9-34.8) g/dL RDW (12.3-16.5) % Plt Count (151-488) x10(3)uL MPV (7.1-12.4) fL Neut % (Auto) (30.8-76.2) % Lymph % (Auto) (18.4-52.1) % Brown % (Auto) (4.4-15.7) % Eos % (Auto) (0.6-8.1) % Baso % (Auto) (0.2-1.5) % Neut # (Auto) (1.5-6.3) x10-3/uL Lymph # (Auto) (1.0-4.4) x10-3/uL Brown # (Auto) (0.3-1.0) x10-3/uL Eos # (Auto) (0.0-0.8) x10-3/uL Baso # (Auto) (0.0-0.1) x10-3/uL Add Manual Diff Neutrophils % (Manual) (46-82) % Band Neutrophils % (0-6) % Lymphocytes % (Manual) (13-37) % Monocytes % (Manual) (4-12) % Sodium (135-145) mmol/L Potassium (3.5-5.3) mmol/L Chloride (100-110) mmol/L Carbon Dioxide (21-32) mmol/L BUN (7-18) mg/dL Creatinine (0.55-1.02) mg/dL Est Cr Clr Drug Dosing Estimated GFR (MDRD) (>60) BUN/Creatinine Ratio (9-20) Glucose (80-116) mg/dL Calcium (8.6-10.2) mg/dL Total Bilirubin (0.1-1.3) mg/dL AST (5-25) IU/L ALT (12-36) U/L Alkaline Phosphatase (56-112) IU/L Troponin I 16.6 (4.0-60.3) pg/mL C-Reactive Protein (0.5-0.9) mg/dL Total Protein (6.0-8.0) g/dL Albumin (3.2-4.6) g/dL Globulin g/dL Albumin/Globulin Ratio Urine Color Yellow (YELLOW) Urine Appearance Cloudy (CLEAR) Urine pH 5.0 (5.0-6.5) Ur Specific [place] 1.020 (1.010-1.025) Urine Protein Negative (NEGATIVE) mg/dL Urine Glucose (UA) Normal (NORMAL) mg/dL Urine Ketones 15 H (NEGATIVE) mg/dL Urine Occult Blood Negative (NEGATIVE) Urine Nitrite Negative (NEGATIVE) Urine Bilirubin Small H (NEGATIVE) Urine Urobilinogen Normal (NEGATIVE) mg/dL Ur Leukocyte Esterase Large H (NEGATIVE) Urine WBC 30-40 H (0-5) Ur Squamous Epith Cells Moderate H (NS,R,O) Urine Bacteria Many H (NS) SARS-CoV-2 RNA (YELITZA) Negative (NEGATIVE) 04/02/21 04/02/21 04/02/21 Range/Units 08:30 08:30 08:30 WBC 12.5 H (3.0-10.3) x10-3/uL RBC 4.47 (3.60-5.20) x10(6)uL Hgb 13.4 (11.4-15.5) g/dL Hct 41.6 (34.2-48.2) % MCV 93.2 (76.7-100.5) fL MCH 30.1 (23.9-33.9) pg MCHC 32.3 (31.9-34.8) g/dL RDW 13.6 (12.3-16.5) % Plt Count 261 (151-488) x10(3)uL MPV 8.4 (7.1-12.4) fL Neut % (Auto) 80.8 H (30.8-76.2) % Lymph % (Auto) 10.5 L (18.4-52.1) % Brown % (Auto) 7.6 (4.4-15.7) % Eos % (Auto) 0.7 (0.6-8.1) % Baso % (Auto) 0.4 (0.2-1.5) % Neut # (Auto) 10.1 H (1.5-6.3) x10-3/uL Lymph # (Auto) 1.3 (1.0-4.4) x10-3/uL Brown # (Auto) 0.9 (0.3-1.0) x10-3/uL Eos # (Auto) 0.1 (0.0-0.8) x10-3/uL Baso # (Auto) 0.0 (0.0-0.1) x10-3/uL Add Manual Diff Neutrophils % (Manual) (46-82) % Band Neutrophils % (0-6) % Lymphocytes % (Manual) (13-37) % Monocytes % (Manual) (4-12) % Sodium 145 (135-145) mmol/L Potassium 4.7 (3.5-5.3) mmol/L Chloride 109 D (100-110) mmol/L Carbon Dioxide 22 (21-32) mmol/L BUN 60 H (7-18) mg/dL Creatinine 2.4 H* (0.55-1.02) mg/dL Est Cr Clr Drug Dosing TNP Estimated GFR (MDRD) 19 L (>60) BUN/Creatinine Ratio 25.0 H (9-20) Glucose 84 (80-116) mg/dL Calcium 9.0 (8.6-10.2) mg/dL Total Bilirubin (0.1-1.3) mg/dL AST (5-25) IU/L ALT (12-36) U/L Alkaline Phosphatase (56-112) IU/L Troponin I (4.0-60.3) pg/mL C-Reactive Protein 1.5 H (0.5-0.9) mg/dL Total Protein (6.0-8.0) g/dL Albumin (3.2-4.6) g/dL Globulin g/dL Albumin/Globulin Ratio Urine Color (YELLOW) Urine Appearance (CLEAR) Urine pH (5.0-6.5) Ur Specific [place] (1.010-1.025) Urine Protein (NEGATIVE) mg/dL Urine Glucose (UA) (NORMAL) mg/dL Urine Ketones (NEGATIVE) mg/dL Urine Occult Blood (NEGATIVE) Urine Nitrite (NEGATIVE) Urine Bilirubin (NEGATIVE) Urine Urobilinogen (NEGATIVE) mg/dL Ur Leukocyte Esterase (NEGATIVE) Urine WBC (0-5) Ur Squamous Epith Cells (NS,R,O) Urine Bacteria (NS) SARS-CoV-2 RNA (YELITZA) (NEGATIVE) Result Diagrams: 04/02/21 08:30 04/02/21 08:30 Sepsis Event Note - Evaluation Sepsis Screening Result: No Definite Risk - Focused Exam Vital Signs: Vital Signs Temp Pulse Resp BP BP Pulse Ox 04/02/21 11:00 96.9 F 84 18 138/69 94 L 04/02/21 09:38 99/77 04/02/21 08:30 98.0 F 79 20 99/77 95 04/02/21 06:45 97.2 F 78 20 127/71 95 *Q Meaningful Use (ADM) - VTE *Q VTE Mechanical Contraindications *Q: At Risk for Falls - VTE Risk Assess *Q Each Risk Factor Represents 1 Point: Obesity ( BMI > 25 kg/m2) Total Score 1 Point Risk Factors: 1 Each Risk Factor Represents 2 Points: None Total Score 2 Point Risk Factors: 0 Each Risk Factor Represents 3 Points: Age 75 Years or Greater Total Score 3 Point Risk Factors: 3 Each Risk Factor Represents 5 Points: None Total Score 5 Point Risk Factors: 0 Venous Thromboembolism Risk Factor Score *Q: 4 - Problem List (1) Compression fracture of L1 lumbar vertebra SNOMED Code(s): 184156895, 993616078, 26577954488390792 ICD Code: S32.010A - WEDGE COMPRESSION FRACTURE OF FIRST LUMBAR VERTEBRA, INIT Status: Acute Current Visit: Yes (2) Uncontrolled pain SNOMED Code(s): 18576406804861354 ICD Code: R52 - PAIN, UNSPECIFIED Status: Acute Current Visit: Yes (3) Low back pain SNOMED Code(s): 592070535 ICD Code: M54.5 - LOW BACK PAIN * DO NOT USE * Status: Acute Current Visit: No Qualifiers: Chronicity: unspecified Back pain laterality: right Sciatica presence: without sciatica (4) Acute on chronic renal failure SNOMED Code(s): 405309071 ICD Code: N17.9 - ACUTE KIDNEY FAILURE, UNSPECIFIED; N18.9 - CHRONIC KIDNEY DISEASE, UNSPECIFIED Status: Acute Current Visit: Yes (5) Elevated C-reactive protein (CRP) SNOMED Code(s): 530457697434160 ICD Code: R79.82 - ELEVATED C-REACTIVE PROTEIN (CRP) Status: Acute Current Visit: Yes (6) Elevated WBC count SNOMED Code(s): 630355454, 796435503 ICD Code: D72.829 - ELEVATED WHITE BLOOD CELL COUNT, UNSPECIFIED Status: Acute Current Visit: Yes (7) Moderate dehydration SNOMED Code(s): 2173304723754 ICD Code: E86.0 - DEHYDRATION Status: Acute Current Visit: Yes (8) Poor fluid intake SNOMED Code(s): 101081875 ICD Code: R63.8 - OTHER SYMPTOMS AND SIGNS CONCERNING FOOD AND FLUID INTAKE Status: Acute Current Visit: Yes (9) Refuses to eat SNOMED Code(s): 874185907 ICD Code: R63.39 - OTHER FEEDING DIFFICULTIES Status: Acute Current Visit: Yes (10) Sundowning SNOMED Code(s): 339654726, 787533641, 122673237 ICD Code: F05 - DELIRIUM DUE TO KNOWN PHYSIOLOGICAL CONDITION Status: Acute Current Visit: Yes (11) Cystitis SNOMED Code(s): 80739299 ICD Code: N30.90 - CYSTITIS, UNSPECIFIED WITHOUT HEMATURIA Status: Acute Current Visit: No (12) Diet-controlled diabetes mellitus SNOMED Code(s): 502410438, 382671580 ICD Code: E11.9 - TYPE 2 DIABETES MELLITUS WITHOUT COMPLICATIONS Status: Chronic Current Visit: Yes (13) Hypertension SNOMED Code(s): 71651067 ICD Code: I10 - ESSENTIAL (PRIMARY) HYPERTENSION Status: Chronic Current Visit: Yes Problem List Initiated/Reviewed/Updated: Yes Orders Last 24hrs: Active Orders 24 hr Category Date Time Status Admission Status [Patient Status] [ADT] Routine ADT 04/02/21 12:05 Active Oxygen Therapy [RC] PRN Care 04/02/21 13:43 Active Up With Assistance [RC] ASDIRECTED Care 04/02/21 13:43 Active Up to Chair [RC] ASDIRECTED Care 04/02/21 13:43 Active VTE/DVT Education [RC] Per Unit Routine Care 04/02/21 13:43 Active Vital Signs [RC] QSHIFT Care 04/02/21 13:43 Active OT Evaluation and Treatment [CONS] Routine Cons 04/02/21 13:43 Active PT Evaluation and Treatment [CONS] Routine Cons 04/02/21 13:43 Active Regular Diet [DIET] Diet 04/02/21 Dinner Active BASIC METABOLIC PANEL,BMP [CHEM] Routine Lab 04/03/21 06:00 Ordered CBC WITH AUTO DIFF [HEME] Routine Lab 04/03/21 06:00 Ordered CULTURE URINE [RM] Stat Lab 04/02/21 09:17 Received Acetaminophen [Tylenol Extra Strength] Med 04/02/21 14:00 Active 500 mg PO Q6H Aspirin [Halfprin] Med 04/03/21 09:00 Active 81 mg PO DAILY Famotidine [Famotidine] Med 04/03/21 09:00 Active 40 mg PO DAILY Gabapentin [Neurontin] Med 04/02/21 21:00 Active 100 mg PO BEDTIME Ibuprofen [Motrin] Med 04/02/21 14:00 Active 200 mg PO Q6H Levothyroxine [Synthroid] Med 04/03/21 06:00 Active 50 mcg PO DAILY@0600 Mirtazapine [Remeron] Med 04/02/21 21:00 Active 15 mg PO BEDTIME Potassium Chloride [Potassium Chloride] Med 04/03/21 09:00 Active 20 meq PO DAILY Simvastatin [Zocor] Med 04/02/21 21:00 Active 20 mg PO BEDTIME Sodium Chloride 0.9% [Normal Saline] 1,000 ml Med 04/02/21 14:00 Active IV ASDIRECTED amLODIPine [Norvasc] Med 04/02/21 21:00 Active 2.5 mg PO BEDTIME cefTRIAXone [Rocephin] Med 04/03/21 09:00 Active 1 gm IVPUSH Q24H lisinopriL [Prinivil] Med 04/03/21 09:00 Active 20 mg PO DAILY polyethylene glycoL 3350 [MiraLAX] Med 04/03/21 09:00 Active 17 gm PO DAILY PRN Resuscitation Status Routine Resus Stat 04/02/21 13:43 Ordered Medication Orders Acetaminophen (Acetaminophen 500 Mg Tab) 500 mg PO Q6H [facility] Last Admin: 04/02/21 14:26 Dose: 500 mg Documented by: GUY Amlodipine Besylate (Amlodipine 2.5 Mg Tab *Ptom) 2.5 mg PO BEDTIME KILLIAN Aspirin (Aspirin 81 Mg Tab.Ec *Ptom) 81 mg PO DAILY KILLIAN Ceftriaxone Sodium (Ceftriaxone 1 Gm Vial) 1 gm IVPUSH Q24H KILLIAN Gabapentin (Gabapentin 100 Mg Cap *Ptom) 100 mg PO BEDTIME KILLIAN Sodium Chloride (Normal Saline) 1,000 mls @ 50 mls/hr IV ASDIRECTED KILLIAN Last Admin: 04/02/21 14:20 Dose: 50 mls/hr Documented by: HUDSKAT Ibuprofen (Ibuprofen 200 Mg Tab) 200 mg PO Q6H [facility] Last Admin: 04/02/21 14:27 Dose: 200 mg Documented by: GUY Levothyroxine Sodium (Levothyroxine 50 Mcg Tab *Ptom) 50 mcg PO DAILY@0600 KILLIAN Lisinopril (Lisinopril 20 Mg Tab *Ptom) 20 mg PO DAILY KILLIAN Mirtazapine (Mirtazapine 15 Mg Tab *Ptom) 15 mg PO BEDTIME KILLIAN (Famotidine [ Famotidine] 40 Mg Tab *Ptom 40 mg PO DAILY KILLIAN (Potassium Chloride [Potassium Chloride] 20 Meq *Ptom 20 meq PO DAILY KILLIAN Polyethylene Glycol (Polyethylene Glycol 3350 Powder 17 Gm Packet) 17 gm PO DAILY PRN PRN Reason: CONSTIPATION Simvastatin (Simvastatin 20 Mg Tab *Ptom) 20 mg PO BEDTIME KILLIAN Assessment/Plan Comment:: 1. Admit for observation for worsening L1 compression fracture, pain management, UTI, dehydration. 2. L1 compression fracture: PT/OT evaluate & treat, PT/OT recommended [place] 637 Adjustable back brace to be used when she is up in chair and ambulating. They were able to pivot transfer to [facility]. Tylenol 500 mg & Ibuprofen 200 mg q6h given together, Tramadol 25 mg bid as needed. Will hold off IV pain medications due to mental status, if pain not controlled with oral, then will add IV morphine. 3. UTI: Rocephin 1 gm IV q24h, UC pending. 4. Dehydration/poor oral intake: NS at 50 ml/hr to avoid fluid overload. 5. Diet: Regular. 6. Activity: up to chair & with assistance. PT/OT recommended against trying to make her ambulate longer distances. 7. CODE STATUS: DNR/DNI. 8. Discharge planning: she is on wait list for [facility] for transfer for neurosurgery consult. Treat UTI, dehydration, and pain control until we can get transferred. - Mortality Measure Prognosis:: Poor
[2021-04-02] MEDS: amLODIPine 2.5 MG Tab *PTOM PO SCH (20:37)
[2021-04-02] MEDS: Gabapentin 100 MG Cap *PTOM PO SCH (20:37)
[2021-04-02] MEDS: Mirtazapine 15 MG Tab *PTOM PO SCH (20:37)
[2021-04-02] MEDS: Simvastatin 20 MG Tab *PTOM PO SCH (20:38)
[2021-04-03] MEDS: Acetaminophen 500 MG Tab PO SCH ×4 (01:51→20:06)
[2021-04-03] MEDS: Ibuprofen 200 MG Tab PO SCH ×4 (01:51→20:05)
[2021-04-03] MEDS: Levothyroxine 50 MCG Tab *PTOM PO SCH (05:25)
[2021-04-03] MEDS ORDERED: Polyethylene Glycol 3350 Powder 17 GM Packet PO PRN (09:00)
[2021-04-03] MEDS: POTASSIUM CHLORIDE 20 MEQ PO SCH (09:04)
[2021-04-03] MEDS: Aspirin 81 MG Tab.EC *PTOM PO SCH (09:04)
[2021-04-03] MEDS: Lisinopril 20 MG Tab *PTOM PO SCH (09:10)
[2021-04-03] MEDS: cefTRIAXone 1 GM Vial IVPUSH SCH (09:11)
[2021-04-03] MEDS: Sodium Chloride 0.9% 1,000 ML IV SCH (10:33)
--- NOTE | 2021-04-03 14:57 | PCM.PN ---
- General Info Date of Service: 04/03/21 Subjective Update: Larisa slept late this morning, ate 20% for breakfast and about 50% for lunch. Using bedside commode, pivot transfers with nursing. Still on wait list for [facility]. - Patient Data Vitals - Most Recent: Last Vital Signs Temp 97.5 F 04/03/21 13:00 Pulse 86 04/03/21 13:00 Resp 18 04/03/21 13:00 BP 114/59 L 04/03/21 13:00 Pulse Ox 93 L 04/03/21 13:43 Weight - Most Recent: 175 lb 6 oz I&O - Last 24 Hours: Intake & Output 04/02/21 04/03/21 04/03/21 22:59 06:59 14:59 Intake Total 640 Balance 640 Lab Results Last 24 Hours: Laboratory Results - last 24 hr 04/03/21 04/03/21 Range/Units 06:30 06:30 WBC 9.1 (3.0-10.3) x10-3/uL RBC 4.21 (3.60-5.20) x10(6)uL Hgb 12.7 (11.4-15.5) g/dL Hct 39.2 (34.2-48.2) % MCV 93.1 (76.7-100.5) fL MCH 30.2 (23.9-33.9) pg MCHC 32.4 (31.9-34.8) g/dL RDW 14.0 (12.3-16.5) % Plt Count 234 (151-488) x10(3)uL MPV 8.4 (7.1-12.4) fL Neut % (Auto) 76.8 H (30.8-76.2) % Lymph % (Auto) 13.3 L (18.4-52.1) % [place] % (Auto) 7.0 (4.4-15.7) % Eos % (Auto) 2.5 (0.6-8.1) % Baso % (Auto) 0.4 (0.2-1.5) % Neut # (Auto) 7.0 H (1.5-6.3) x10-3/uL Lymph # (Auto) 1.2 (1.0-4.4) x10-3/uL [place] # (Auto) 0.6 (0.3-1.0) x10-3/uL Eos # (Auto) 0.2 (0.0-0.8) x10-3/uL Baso # (Auto) 0.0 (0.0-0.1) x10-3/uL Sodium 146 H (135-145) mmol/L Potassium 4.0 (3.5-5.3) mmol/L Chloride 111 H (100-110) mmol/L Carbon Dioxide 26 (21-32) mmol/L BUN 51 H (7-18) mg/dL Creatinine 1.8 H (0.55-1.02) mg/dL Est Cr Clr Drug Dosing 19.24 mL/min Estimated GFR (MDRD) 27 L (>60) BUN/Creatinine Ratio 28.3 H (9-20) Glucose 87 (80-116) mg/dL Calcium 8.5 L (8.6-10.2) mg/dL David Results Last 24 Hours: Microbiology 04/02/21 09:17 Urine Culture - Preliminary Urine, Catheterized Gram Positive Cocci Med Orders - Current: Current Medications Acetaminophen (Acetaminophen 500 Mg Tab) 500 mg PO Q6H [facility] Last Admin: 04/03/21 13:52 Dose: 500 mg Documented by: Amlodipine Besylate (Amlodipine 2.5 Mg Tab *Ptom) 2.5 mg PO BEDTIME [facility] Last Admin: 04/02/21 20:37 Dose: 2.5 mg Documented by: Aspirin (Aspirin 81 Mg Tab.Ec *Ptom) 81 mg PO DAILY [facility] Last Admin: 04/03/21 09:04 Dose: 81 mg Documented by: Ceftriaxone Sodium (Ceftriaxone 1 Gm Vial) 1 gm IVPUSH Q24H [facility] Last Admin: 04/03/21 09:11 Dose: 1 gm Documented by: Gabapentin (Gabapentin 100 Mg Cap *Ptom) 100 mg PO BEDTIME [facility] Last Admin: 04/02/21 20:37 Dose: 100 mg Documented by: Sodium Chloride (Normal Saline) 1,000 mls @ 50 mls/hr IV ASDIRECTED [facility] Last Admin: 04/03/21 10:33 Dose: 50 mls/hr Documented by: Ibuprofen (Ibuprofen 200 Mg Tab) 200 mg PO Q6H [facility] Last Admin: 04/03/21 13:51 Dose: 200 mg Documented by: Levothyroxine Sodium (Levothyroxine 50 Mcg Tab *Ptom) 50 mcg PO DAILY@0600 [facility] Last Admin: 04/03/21 05:25 Dose: 50 mcg Documented by: Lisinopril (Lisinopril 20 Mg Tab *Ptom) 20 mg PO DAILY [facility] Last Admin: 04/03/21 09:10 Dose: 20 mg Documented by: Mirtazapine (Mirtazapine 15 Mg Tab *Ptom) 15 mg PO BEDTIME [facility] Last Admin: 04/02/21 20:37 Dose: 15 mg Documented by: (Famotidine [ Famotidine] 40 Mg Tab *Ptom 40 mg PO DAILY [facility] Last Admin: 04/03/21 09:03 Dose: 40 mg Documented by: (Potassium Chloride [Potassium Chloride] 20 Meq *Ptom 20 meq PO DAILY [facility] Last Admin: 04/03/21 09:04 Dose: 20 meq Documented by: Polyethylene Glycol (Polyethylene Glycol 3350 Powder 17 Gm Packet) 17 gm PO DAILY PRN PRN Reason: CONSTIPATION Simvastatin (Simvastatin 20 Mg Tab *Ptom) 20 mg PO BEDTIME [facility] Last Admin: 04/02/21 20:38 Dose: 20 mg Documented by: Tramadol HCl (Tramadol 50 Mg Tab) 50 mg PO Q8H PRN PRN Reason: Pain (moderate 4-6) Discontinued Medications Acetaminophen (Acetaminophen 500 Mg Tab) 1,000 mg PO ONETIME ONE Stop: 04/01/21 16:58 Last Admin: 04/01/21 18:30 Dose: 1,000 mg Documented by: Amlodipine Besylate (Amlodipine 2.5 Mg Tab) 2.5 mg PO ONETIME ONE Stop: 04/02/21 08:57 Last Admin: 04/02/21 09:38 Dose: Not Given Documented by: Aspirin (Aspirin 81 Mg Tab.Chew) 81 mg PO ONETIME ONE Stop: 04/02/21 08:57 Last Admin: 04/02/21 09:37 Dose: 81 mg Documented by: Ceftriaxone Sodium (Ceftriaxone 1 Gm Vial) 1 gm IVPUSH NOW ONE Stop: 04/02/21 09:18 Last Admin: 04/02/21 09:37 Dose: 1 gm Documented by: Famotidine (Famotidine 20 Mg Tab) 40 mg PO ONETIME ONE Stop: 04/02/21 08:57 Last Admin: 04/02/21 09:37 Dose: 40 mg Documented by: Sodium Chloride (Normal Saline) 1,000 mls @ 999 mls/hr IV .BOLUS ONE Stop: 04/01/21 17:48 Last Admin: 04/01/21 18:30 Dose: 999 mls/hr Documented by: Sodium Chloride (Normal Saline) 1,000 mls @ 999 mls/hr IV .BOLUS ONE Stop: 04/01/21 23:11 Last Admin: 04/02/21 06:54 Dose: 999 mls/hr Documented by: Potassium Chloride/Dextrose/Sod Cl (D5 1/2 Ns W/ 20 Meq/L Kcl) 1,000 mls @ 50 mls/hr IV ASDIRECTED [facility] Last Admin: 04/02/21 08:53 Dose: 50 mls/hr Documented by: Dextrose/Sodium Chloride (Dextrose 5%-1/4 Ns) 1,000 mls @ 75 mls/hr IV ASDIRECTED [facility] - Exam General: Alert, Oriented, Cooperative, No Acute Distress (position of comfort is laying on her back) Lungs: Clear to Auscultation, Normal Respiratory Effort Cardiovascular: Regular Rate, Regular Rhythm GI/Abdominal Exam: Normal Bowel Sounds, Soft, Non-Tender, No Distention Extremities: No Pedal Edema - Patient Data Lab Results Last 24 hrs: Laboratory Results - last 24 hr 04/03/21 04/03/21 Range/Units 06:30 06:30 WBC 9.1 (3.0-10.3) x10-3/uL RBC 4.21 (3.60-5.20) x10(6)uL Hgb 12.7 (11.4-15.5) g/dL Hct 39.2 (34.2-48.2) % MCV 93.1 (76.7-100.5) fL MCH 30.2 (23.9-33.9) pg MCHC 32.4 (31.9-34.8) g/dL RDW 14.0 (12.3-16.5) % Plt Count 234 (151-488) x10(3)uL MPV 8.4 (7.1-12.4) fL Neut % (Auto) 76.8 H (30.8-76.2) % Lymph % (Auto) 13.3 L (18.4-52.1) % [place] % (Auto) 7.0 (4.4-15.7) % Eos % (Auto) 2.5 (0.6-8.1) % Baso % (Auto) 0.4 (0.2-1.5) % Neut # (Auto) 7.0 H (1.5-6.3) x10-3/uL Lymph # (Auto) 1.2 (1.0-4.4) x10-3/uL [place] # (Auto) 0.6 (0.3-1.0) x10-3/uL Eos # (Auto) 0.2 (0.0-0.8) x10-3/uL Baso # (Auto) 0.0 (0.0-0.1) x10-3/uL Sodium 146 H (135-145) mmol/L Potassium 4.0 (3.5-5.3) mmol/L Chloride 111 H (100-110) mmol/L Carbon Dioxide 26 (21-32) mmol/L BUN 51 H (7-18) mg/dL Creatinine 1.8 H (0.55-1.02) mg/dL Est Cr Clr Drug Dosing 19.24 mL/min Estimated GFR (MDRD) 27 L (>60) BUN/Creatinine Ratio 28.3 H (9-20) Glucose 87 (80-116) mg/dL Calcium 8.5 L (8.6-10.2) mg/dL Result Diagrams: 04/03/21 06:30 04/03/21 06:30 David Results Last 24 hrs: Microbiology 04/02/21 09:17 Urine Culture - Preliminary Urine, Catheterized Gram Positive Cocci Sepsis Event Note - Evaluation Sepsis Screening Result: No Definite Risk - Focused Exam Vital Signs: Vital Signs Temp Temp Pulse Resp BP BP Pulse Ox 04/03/21 13:43 04/03/21 13:00 97.5 F 86 18 114/59 L 93 L 04/03/21 09:10 117/75 04/03/21 08:00 98.2 F 82 17 117/75 94 L Pulse Ox 04/03/21 13:43 93 L 04/03/21 13:00 04/03/21 09:10 04/03/21 08:00 - Problem List & Annotations (1) Compression fracture of L1 lumbar vertebra SNOMED Code(s): 681975907, 295049105, 32378064890674444 Code(s): S32.010A - WEDGE COMPRESSION FRACTURE OF FIRST LUMBAR VERTEBRA, INIT Status: Acute Current Visit: Yes (2) Cystitis SNOMED Code(s): 99840924 Code(s): N30.90 - CYSTITIS, UNSPECIFIED WITHOUT HEMATURIA Status: Acute Current Visit: No (3) Uncontrolled pain SNOMED Code(s): 46808967613852078 Code(s): R52 - PAIN, UNSPECIFIED Status: Acute Current Visit: Yes (4) Low back pain SNOMED Code(s): 255074487 Code(s): M54.5 - LOW BACK PAIN * DO NOT USE * Status: Acute Current Visit: No Qualifiers: Chronicity: unspecified Back pain laterality: right Sciatica presence: without sciatica (5) Acute on chronic renal failure SNOMED Code(s): 529597955 Code(s): N17.9 - ACUTE KIDNEY FAILURE, UNSPECIFIED; N18.9 - CHRONIC KIDNEY DISEASE, UNSPECIFIED Status: Acute Current Visit: Yes (6) Elevated C-reactive protein (CRP) SNOMED Code(s): 214010654134654 Code(s): R79.82 - ELEVATED C-REACTIVE PROTEIN (CRP) Status: Acute Current Visit: Yes (7) Elevated WBC count SNOMED Code(s): 662130872, 429083801 Code(s): D72.829 - ELEVATED WHITE BLOOD CELL COUNT, UNSPECIFIED Status: Acute Current Visit: Yes (8) Moderate dehydration SNOMED Code(s): 5636854891772 Code(s): E86.0 - DEHYDRATION Status: Acute Current Visit: Yes (9) Poor fluid intake SNOMED Code(s): 382439848 Code(s): R63.8 - OTHER SYMPTOMS AND SIGNS CONCERNING FOOD AND FLUID INTAKE Status: Acute Current Visit: Yes (10) Refuses to eat SNOMED Code(s): 620396404 Code(s): R63.39 - OTHER FEEDING DIFFICULTIES Status: Acute Current Visit: Yes (11) Sundowning SNOMED Code(s): 731895164, 519297682, 067253473 Code(s): F05 - DELIRIUM DUE TO KNOWN PHYSIOLOGICAL CONDITION Status: Acute Current Visit: Yes (12) Diet-controlled diabetes mellitus SNOMED Code(s): 070830176, 738602673 Code(s): E11.9 - TYPE 2 DIABETES MELLITUS WITHOUT COMPLICATIONS Status: Chronic Current Visit: Yes (13) Hypertension SNOMED Code(s): 98884269 Code(s): I10 - ESSENTIAL (PRIMARY) HYPERTENSION Status: Chronic Current Visit: Yes - Problem List Review Problem List Initiated/Reviewed/Updated: Yes - My Orders Last 24 Hours: My Active Orders 04/02/21 14:00 Acetaminophen [Tylenol Extra Strength] 500 mg PO Q6H Ibuprofen [Motrin] 200 mg PO Q6H Sodium Chloride 0.9% [Normal Saline] 1,000 ml IV ASDIRECTED 04/02/21 Dinner Regular Diet [DIET] 04/02/21 21:00 Gabapentin [Neurontin] 100 mg PO BEDTIME Mirtazapine [Remeron] 15 mg PO BEDTIME Simvastatin [Zocor] 20 mg PO BEDTIME amLODIPine [Norvasc] 2.5 mg PO BEDTIME 04/03/21 06:00 Levothyroxine [Synthroid] 50 mcg PO DAILY@0600 04/03/21 09:00 Aspirin [Halfprin] 81 mg PO DAILY Famotidine [Famotidine] 40 mg PO DAILY Potassium Chloride [Potassium Chloride] 20 meq PO DAILY cefTRIAXone [Rocephin] 1 gm IVPUSH Q24H lisinopriL [Prinivil] 20 mg PO DAILY polyethylene glycoL 3350 [MiraLAX] 17 gm PO DAILY PRN 04/03/21 14:51 traMADol [Ultram] 50 mg PO Q8H PRN - Plan Plan:: 1. L1 compression fracture: PT/OT evaluate & treat, PT/OT recommended [place] 637 Adjustable back brace to be used when she is up in chair and ambulating. They were able to pivot transfer to [facility]. Tylenol 500 mg & Ibuprofen 200 mg q6h given together, Tramadol 50 mg q8h as needed. 2. UTI/cystitis without hematuria: Rocephin 1 gm IV q24h, UC gram positive cocci(GPC). 3. Dehydration/poor oral intake: NS at 50 ml/hr to avoid fluid overload. 4. Discharge planning: she is on wait list for [facility] for transfer for neurosurgery consult. Treat UTI, dehydration, and pain control until we can get transferred. Adjust treatments as necessary.
[2021-04-03] MEDS: Gabapentin 100 MG Cap *PTOM PO SCH (20:07)
[2021-04-03] MEDS: amLODIPine 2.5 MG Tab *PTOM PO SCH (20:08)
[2021-04-03] MEDS: Simvastatin 20 MG Tab *PTOM PO SCH (20:11)
[2021-04-03] MEDS: Mirtazapine 15 MG Tab *PTOM PO SCH (20:11)
[2021-04-03] MEDS: traMADol 50 MG Tab PO PRN (20:12)
[2021-04-04] MEDS: Ibuprofen 200 MG Tab PO SCH ×4 (02:15→20:00)
[2021-04-04] MEDS: Acetaminophen 500 MG Tab PO SCH ×4 (02:16→20:01)
[2021-04-04] MEDS: Levothyroxine 50 MCG Tab *PTOM PO SCH (06:01)
[2021-04-04] MEDS: Sodium Chloride 0.9% 1,000 ML IV SCH (06:04)
[2021-04-04] MEDS: Aspirin 81 MG Tab.EC *PTOM PO SCH (07:59)
[2021-04-04] MEDS: POTASSIUM CHLORIDE 20 MEQ PO SCH (07:59)
[2021-04-04] MEDS: Lisinopril 20 MG Tab *PTOM PO SCH (08:00)
[2021-04-04] MEDS: cefTRIAXone 1 GM Vial IVPUSH SCH (08:01)
[2021-04-04] MEDS ORDERED: Morphine 2 MG/ML SYRINGE IVPUSH PRN (17:49)
--- NOTE | 2021-04-04 17:49 | PCM.PN ---
- General Info Date of Service: 04/04/21 Subjective Update: Larisa has been getting up to eat & use the commode and then wants to be back in bed on her back. States back pain is worse with movement. Celeste called today that she is #5 on the list, still awaiting for call back. No nausea, vomiting or diarrhea. She has been eating better. UC staph epidermidis, sensitive to cephalosporins, has completed 3 day course. Afebrile. - Patient Data Vitals - Most Recent: Last Vital Signs Temp 98.6 F 04/04/21 15:26 Pulse 81 04/04/21 15:26 Resp 18 04/04/21 15:26 BP 143/68 H 04/04/21 15:26 Pulse Ox 93 L 04/04/21 15:26 Weight - Most Recent: 175 lb 6 oz I&O - Last 24 Hours: Intake & Output 04/04/21 04/04/21 04/04/21 06:59 14:59 22:59 Intake Total 391 376 Balance 391 376 Lab Results Last 24 Hours: Laboratory Results - last 24 hr 04/04/21 Range/Units 06:35 Sodium 144 (135-145) mmol/L Potassium 4.4 (3.5-5.3) mmol/L Chloride 111 H (100-110) mmol/L Carbon Dioxide 27 (21-32) mmol/L BUN 35 H D (7-18) mg/dL Creatinine 1.4 H (0.55-1.02) mg/dL Est Cr Clr Drug Dosing 24.74 mL/min Estimated GFR (MDRD) 36 L (>60) BUN/Creatinine Ratio 25.0 H (9-20) Glucose 83 (80-116) mg/dL Calcium 8.4 L (8.6-10.2) mg/dL David Results Last 24 Hours: Microbiology 04/02/21 09:17 Urine Culture - Final Urine, Catheterized Staphylococcus Epidermidis Med Orders - Current: Current Medications Acetaminophen (Acetaminophen 500 Mg Tab) 500 mg PO Q6H [facility] Last Admin: 04/04/21 13:21 Dose: 500 mg Documented by: Amlodipine Besylate (Amlodipine 2.5 Mg Tab *Ptom) 2.5 mg PO BEDTIME [facility] Last Admin: 04/03/21 20:08 Dose: 2.5 mg Documented by: Aspirin (Aspirin 81 Mg Tab.Ec *Ptom) 81 mg PO DAILY [facility] Last Admin: 04/04/21 07:59 Dose: 81 mg Documented by: Ceftriaxone Sodium (Ceftriaxone 1 Gm Vial) 1 gm IVPUSH Q24H [facility] Last Admin: 04/04/21 08:01 Dose: 1 gm Documented by: Gabapentin (Gabapentin 100 Mg Cap *Ptom) 100 mg PO BEDTIME [facility] Last Admin: 04/03/21 20:07 Dose: 100 mg Documented by: Sodium Chloride (Normal Saline) 1,000 mls @ 50 mls/hr IV ASDIRECTED [facility] Last Admin: 04/04/21 06:04 Dose: 50 mls/hr Documented by: Ibuprofen (Ibuprofen 200 Mg Tab) 200 mg PO Q6H [facility] Last Admin: 04/04/21 13:21 Dose: 200 mg Documented by: Levothyroxine Sodium (Levothyroxine 50 Mcg Tab *Ptom) 50 mcg PO DAILY@0600 [facility] Last Admin: 04/04/21 06:01 Dose: 50 mcg Documented by: Lisinopril (Lisinopril 20 Mg Tab *Ptom) 20 mg PO DAILY [facility] Last Admin: 04/04/21 08:00 Dose: 20 mg Documented by: Mirtazapine (Mirtazapine 15 Mg Tab *Ptom) 15 mg PO BEDTIME [facility] Last Admin: 04/03/21 20:11 Dose: 15 mg Documented by: (Famotidine [ Famotidine] 40 Mg Tab *Ptom 40 mg PO DAILY [facility] Last Admin: 04/04/21 08:00 Dose: 40 mg Documented by: (Potassium Chloride [Potassium Chloride] 20 Meq *Ptom 20 meq PO DAILY [facility] Last Admin: 04/04/21 07:59 Dose: 20 meq Documented by: Polyethylene Glycol (Polyethylene Glycol 3350 Powder 17 Gm Packet) 17 gm PO DAILY PRN PRN Reason: CONSTIPATION Simvastatin (Simvastatin 20 Mg Tab *Ptom) 20 mg PO BEDTIME [facility] Last Admin: 04/03/21 20:11 Dose: 20 mg Documented by: Tramadol HCl (Tramadol 50 Mg Tab) 50 mg PO Q8H PRN PRN Reason: Pain (moderate 4-6) Last Admin: 04/03/21 20:12 Dose: 50 mg Documented by: Discontinued Medications Acetaminophen (Acetaminophen 500 Mg Tab) 1,000 mg PO ONETIME ONE Stop: 04/01/21 16:58 Last Admin: 04/01/21 18:30 Dose: 1,000 mg Documented by: Amlodipine Besylate (Amlodipine 2.5 Mg Tab) 2.5 mg PO ONETIME ONE Stop: 04/02/21 08:57 Last Admin: 04/02/21 09:38 Dose: Not Given Documented by: Aspirin (Aspirin 81 Mg Tab.Chew) 81 mg PO ONETIME ONE Stop: 04/02/21 08:57 Last Admin: 04/02/21 09:37 Dose: 81 mg Documented by: Ceftriaxone Sodium (Ceftriaxone 1 Gm Vial) 1 gm IVPUSH NOW ONE Stop: 04/02/21 09:18 Last Admin: 04/02/21 09:37 Dose: 1 gm Documented by: Famotidine (Famotidine 20 Mg Tab) 40 mg PO ONETIME ONE Stop: 04/02/21 08:57 Last Admin: 04/02/21 09:37 Dose: 40 mg Documented by: Sodium Chloride (Normal Saline) 1,000 mls @ 999 mls/hr IV .BOLUS ONE Stop: 04/01/21 17:48 Last Admin: 04/01/21 18:30 Dose: 999 mls/hr Documented by: Sodium Chloride (Normal Saline) 1,000 mls @ 999 mls/hr IV .BOLUS ONE Stop: 04/01/21 23:11 Last Admin: 04/02/21 06:54 Dose: 999 mls/hr Documented by: Potassium Chloride/Dextrose/Sod Cl (D5 1/2 Ns W/ 20 Meq/L Kcl) 1,000 mls @ 50 mls/hr IV ASDIRECTED [facility] Last Admin: 04/02/21 08:53 Dose: 50 mls/hr Documented by: Dextrose/Sodium Chloride (Dextrose 5%-1/4 Ns) 1,000 mls @ 75 mls/hr IV ASDIRE CTED [facility] - Exam General: Alert, Oriented, Cooperative, No Acute Distress Lungs: Clear to Auscultation, Normal Respiratory Effort Cardiovascular: Regular Rate, Regular Rhythm GI/Abdominal Exam: Normal Bowel Sounds, Soft, Non-Tender, No Distention Extremities: No Pedal Edema Peripheral Pulses: 2+: Radial (L), Radial (R), Posterior Tibial (L), Posterior Tibial (R), Dorsalis Pedis (L), Dorsalis Pedis (R) - Patient Data Lab Results Last 24 hrs: Laboratory Results - last 24 hr 04/04/21 Range/Units 06:35 Sodium 144 (135-145) mmol/L Potassium 4.4 (3.5-5.3) mmol/L Chloride 111 H (100-110) mmol/L Carbon Dioxide 27 (21-32) mmol/L BUN 35 H D (7-18) mg/dL Creatinine 1.4 H (0.55-1.02) mg/dL Est Cr Clr Drug Dosing 24.74 mL/min Estimated GFR (MDRD) 36 L (>60) BUN/Creatinine Ratio 25.0 H (9-20) Glucose 83 (80-116) mg/dL Calcium 8.4 L (8.6-10.2) mg/dL Result Diagrams: 04/03/21 06:30 04/04/21 06:35 David Results Last 24 hrs: Microbiology 04/02/21 09:17 Urine Culture - Final Urine, Catheterized Staphylococcus Epidermidis Sepsis Event Note - Evaluation Sepsis Screening Result: No Definite Risk - Focused Exam Vital Signs: Vital Signs Temp Pulse Resp BP BP Pulse Ox Pulse Ox 04/04/21 15:26 98.6 F 81 18 143/68 H 93 L 04/04/21 08:00 97.5 F 87 18 155/76 H 155/76 H 94 L 94 L - Problem List & Annotations (1) Compression fracture of L1 lumbar vertebra SNOMED Code(s): 630161976, 216480217, 61240890861358524 Code(s): S32.010A - WEDGE COMPRESSION FRACTURE OF FIRST LUMBAR VERTEBRA, INIT Status: Acute Current Visit: Yes (2) Cystitis SNOMED Code(s): 16067472 Code(s): N30.90 - CYSTITIS, UNSPECIFIED WITHOUT HEMATURIA Status: Resolved Current Visit: No Annotation/Comment:: grew Staph epidermidis, completed 3 doses of Rocephin (3) Uncontrolled pain SNOMED Code(s): 09203891844987580 Code(s): R52 - PAIN, UNSPECIFIED Status: Acute Current Visit: Yes (4) Low back pain SNOMED Code(s): 527440325 Code(s): M54.5 - LOW BACK PAIN * DO NOT USE * Status: Acute Current Visit: No Qualifiers: Chronicity: unspecified Back pain laterality: right Sciatica presence: without sciatica (5) CKD (chronic kidney disease) SNOMED Code(s): 774886159 Code(s): N18.9 - CHRONIC KIDNEY DISEASE, UNSPECIFIED Status: Chronic Current Visit: Yes Qualifiers: Chronic kidney disease stage 3 subtype: stage 3b (GFR 30-44) Annotation/Comment:: Cr improved to 1.4 (6) Elevated C-reactive protein (CRP) SNOMED Code(s): 904956647745301 Code(s): R79.82 - ELEVATED C-REACTIVE PROTEIN (CRP) Status: Acute Current Visit: Yes (7) Diet-controlled diabetes mellitus SNOMED Code(s): 132765211, 811486303 Code(s): E11.9 - TYPE 2 DIABETES MELLITUS WITHOUT COMPLICATIONS Status: Chronic Current Visit: Yes (8) Hypertension SNOMED Code(s): 49397808 Code(s): I10 - ESSENTIAL (PRIMARY) HYPERTENSION Status: Chronic Current Visit: Yes (9) Sundowning SNOMED Code(s): 855943942, 272936498, 171448267 Code(s): F05 - DELIRIUM DUE TO KNOWN PHYSIOLOGICAL CONDITION Status: Resolved Current Visit: Yes (10) Refuses to eat SNOMED Code(s): 163347221 Code(s): R63.39 - OTHER FEEDING DIFFICULTIES Status: Resolved Current Visit: Yes (11) Poor fluid intake SNOMED Code(s): 699309741 Code(s): R63.8 - OTHER SYMPTOMS AND SIGNS CONCERNING FOOD AND FLUID INTAKE Status: Resolved Current Visit: Yes (12) Moderate dehydration SNOMED Code(s): 6525939805428 Code(s): E86.0 - DEHYDRATION Status: Resolved Current Visit: Yes (13) Elevated WBC count SNOMED Code(s): 882655380, 868923258 Code(s): D72.829 - ELEVATED WHITE BLOOD CELL COUNT, UNSPECIFIED Status: Resolved Current Visit: Yes (14) Acute on chronic renal failure SNOMED Code(s): 709509975 Code(s): N17.9 - ACUTE KIDNEY FAILURE, UNSPECIFIED; N18.9 - CHRONIC KIDNEY DISEASE, UNSPECIFIED Status: Resolved Current Visit: Yes Annotation/Comment:: - Problem List Review Problem List Initiated/Reviewed/Updated: Yes - Plan Plan:: 1. L1 compression fracture: PT/OT evaluate & treat, PT/OT recommended [place] 637 Adjustable back brace to be used when she is up in chair and ambulating. They were able to pivot transfer to [facility]. Tylenol 500 mg & Ibuprofen 200 mg q6h given together, Tramadol 50 mg q8h as needed. 2. UTI/cystitis without hematuria: Rocephin 1 gm IV q24h day 3/, UC staph epidermidis, sensitive to cephalosporins, completed 3 day course. 3. Dehydration/poor oral intake: Saline lock 4. Discharge planning: she is on #5 wait list for [facility] for transfer for neurosurgery consult. Treated UTI, dehydration resolved, and pain management until we can get transferred. Adjust treatments as necessary.
[2021-04-04] MEDS: Gabapentin 100 MG Cap *PTOM PO SCH (19:59)
[2021-04-04] MEDS: Mirtazapine 15 MG Tab *PTOM PO SCH (20:02)
[2021-04-04] MEDS: amLODIPine 2.5 MG Tab *PTOM PO SCH (20:03)
[2021-04-04] MEDS: Simvastatin 20 MG Tab *PTOM PO SCH (20:05)
[2021-04-05] MEDS: Acetaminophen 500 MG Tab PO SCH ×4 (01:15→20:03)
[2021-04-05] MEDS: Ibuprofen 200 MG Tab PO SCH ×4 (01:16→20:04)
[2021-04-05] MEDS: Levothyroxine 50 MCG Tab *PTOM PO SCH (04:59)
[2021-04-05] MEDS: Aspirin 81 MG Tab.EC *PTOM PO SCH (08:25)
[2021-04-05] MEDS: cefTRIAXone 1 GM Vial IVPUSH SCH (08:26)
[2021-04-05] MEDS: Lisinopril 20 MG Tab *PTOM PO SCH (08:26)
[2021-04-05] MEDS: POTASSIUM CHLORIDE 20 MEQ PO SCH (08:26)
[2021-04-05] MEDS ORDERED: Sodium Chloride 0.9% 10 ML Syringe FLUSH PRN (08:28)
[2021-04-05] MEDS: traMADol 50 MG Tab PO PRN (15:27)
--- NOTE | 2021-04-05 16:42 | PCM.DCSUM1 ---
Discharge Summary - Hospital Course Diagnosis: Stroke: No - Discharge Data Discharge Disposition: DC/Tfer to Acute Hospital 02 Condition: Stable - Referral to Home Health Primary Care Physician: Braulio Harding MD - Discharge Diagnosis/Problem(s) (1) Compression fracture of L1 lumbar vertebra SNOMED Code(s): 750038537, 705701684, 39366067650284463 ICD Code: S32.010A - WEDGE COMPRESSION FRACTURE OF FIRST LUMBAR VERTEBRA, INIT Status: Acute Current Visit: Yes (2) Cystitis SNOMED Code(s): 58184092 ICD Code: N30.90 - CYSTITIS, UNSPECIFIED WITHOUT HEMATURIA Status: Resolved Current Visit: No Problem Details: grew Staph epidermidis, completed 3 doses of Rocephin (3) Uncontrolled pain SNOMED Code(s): 04902965984807303 ICD Code: R52 - PAIN, UNSPECIFIED Status: Acute Current Visit: Yes (4) Low back pain SNOMED Code(s): 947927337 ICD Code: M54.5 - LOW BACK PAIN * DO NOT USE * Status: Acute Current Visit: No Qualifiers: Chronicity: unspecified Back pain laterality: right Sciatica presence: without sciatica (5) CKD (chronic kidney disease) SNOMED Code(s): 411422825 ICD Code: N18.9 - CHRONIC KIDNEY DISEASE, UNSPECIFIED Status: Chronic Current Visit: Yes Problem Details: Cr improved to 1.4 Qualifiers: Chronic kidney disease stage 3 subtype: stage 3b (GFR 30-44) (6) Elevated C-reactive protein (CRP) SNOMED Code(s): 418967919490128 ICD Code: R79.82 - ELEVATED C-REACTIVE PROTEIN (CRP) Status: Acute Current Visit: Yes (7) Diet-controlled diabetes mellitus SNOMED Code(s): 443468827, 483163633 ICD Code: E11.9 - TYPE 2 DIABETES MELLITUS WITHOUT COMPLICATIONS Status: Chronic Current Visit: Yes (8) Hypertension SNOMED Code(s): 90004110 ICD Code: I10 - ESSENTIAL (PRIMARY) HYPERTENSION Status: Chronic Current Visit: Yes (9) Sundowning SNOMED Code(s): 057192373, 877181217, 746208019 ICD Code: F05 - DELIRIUM DUE TO KNOWN PHYSIOLOGICAL CONDITION Status: Resolved Current Visit: Yes (10) Refuses to eat SNOMED Code(s): 487063183 ICD Code: R63.39 - OTHER FEEDING DIFFICULTIES Status: Resolved Current Visit: Yes (11) Poor fluid intake SNOMED Code(s): 111935534 ICD Code: R63.8 - OTHER SYMPTOMS AND SIGNS CONCERNING FOOD AND FLUID INTAKE Status: Resolved Current Visit: Yes (12) Moderate dehydration SNOMED Code(s): 0182972809862 ICD Code: E86.0 - DEHYDRATION Status: Resolved Current Visit: Yes (13) Elevated WBC count SNOMED Code(s): 964813366, 081838967 ICD Code: D72.829 - ELEVATED WHITE BLOOD CELL COUNT, UNSPECIFIED Status: Resolved Current Visit: Yes (14) Acute on chronic renal failure SNOMED Code(s): 673756274 ICD Code: N17.9 - ACUTE KIDNEY FAILURE, UNSPECIFIED; N18.9 - CHRONIC KIDNEY DISEASE, UNSPECIFIED Status: Resolved Current Visit: Yes Problem Details: - Patient Summary/Data Consults: Consultations 04/02/21 13:43 OT Evaluation and Treatment [CONS] Routine Please Evaluate and Treat. OT Reason for Consult: ADL's Special Instructions: L1 compression fx This query below is only for informational purposes and is not editable. Admission Diagnosis/Problem: Back pain PT Evaluation and Treatment [CONS] Routine Please Evaluate and Treat. PT Reason for Consult: Ambulation Special Instructions: L1 compression fx This query below is only for informational purposes and is not editable. Admission Diagnosis/Problem: Back pain - Discharge Plan *PRESCRIPTION DRUG MONITORING PROGRAM REVIEWED*: Not Applicable *COPY OF PRESCRIPTION DRUG MONITORING REPORT IN PATIENT NICKOLAS: Not Applicable Home Medications: Home Meds Aspirin [Halfprin] 81 mg PO DAILY 04/01/21 [History] Calcium Carbonate [Tums] 500 mg PO DAILY 04/01/21 [History] Calcium Cit/Mgox/Vit D3/B6/Min [Calcium Citrate Plus Tablet] 950 mg PO BID 04/01/21 [History] Cyanocobalamin (Vitamin B-12) [B-12] 1,000 mcg PO DAILY 04/01/21 [History] Diclofenac Sodium [Voltaren 1% Gel] 4 gm TOP QID 04/01/21 [History] Famotidine 20 mg PO DAILY 04/01/21 [History] Flaxseed/Omega3,6,9/Fatty Acid [Flax Seed Oil 1,300 mg Softgel] 1,000 mg PO DAILY 04/01/21 [History] Furosemide 20 mg PO DAILY 04/01/21 [History] Gabapentin [Neurontin] 100 mg PO BEDTIME 04/01/21 [History] Levothyroxine [Synthroid] 50 mcg PO ACBREAKFAST 04/01/21 [History] Mirtazapine [Remeron] 15 mg PO BEDTIME 04/01/21 [History] Potassium Chloride 20 meq PO DAILY 04/01/21 [History] Simvastatin [Zocor] 20 mg PO BEDTIME 04/01/21 [History] amLODIPine [Norvasc] 2.5 mg PO BEDTIME 04/01/21 [History] lisinopriL [Lisinopril] 20 mg PO DAILY 04/01/21 [History] polyethylene glycoL 3350 [MiraLAX] 17 gm PO DAILY 04/01/21 [History] Loperamide HCl [Imodium A-D] 2 mg PO BID PRN 04/02/21 [History] Magnesium Hydroxide [Milk of Magnesia] 30 ml PO DAILY PRN 04/02/21 [History] [place]-3/DHA/Epa/Fish Oil [[place]-3 Fish Oil 1,000 MG Sfgl] 2,000 mg PO DAILY 04/02/21 [History] Acetaminophen [Tylenol Extra Strength] 500 mg PO Q6H tablet 04/04/21 [Rx] Ibuprofen [Motrin] 200 mg PO Q6H tablet 04/04/21 [Rx] traMADol [Ultram] 50 mg PO Q8H PRN tablet 04/04/21 [Rx] Forms: ED Department Discharge Referrals: Braulio Harding MD [Primary Care Provider] - - Patient Data Vitals - Most Recent: Last Vital Signs Temp 97.6 F 04/05/21 08:00 Pulse 81 04/05/21 12:00 Resp 16 04/05/21 12:00 BP 160/77 H 04/05/21 12:00 Pulse Ox 93 L 04/05/21 12:00 Weight - Most Recent: 175 lb 6 oz I&O - Last 24 hours: Intake & Output 04/05/21 04/05/21 04/05/21 06:59 14:59 22:59 Intake Total 173 Balance 173 Med Orders - Current: Current Medications Acetaminophen (Acetaminophen 500 Mg Tab) 500 mg PO Q6H [facility] Last Admin: 04/05/21 13:31 Dose: 500 mg Documented by: Amlodipine Besylate (Amlodipine 2.5 Mg Tab *Ptom) 2.5 mg PO BEDTIME [facility] Last Admin: 04/04/21 20:03 Dose: 2.5 mg Documented by: Aspirin (Aspirin 81 Mg Tab.Ec *Ptom) 81 mg PO DAILY [facility] Last Admin: 04/05/21 08:25 Dose: 81 mg Documented by: Gabapentin (Gabapentin 100 Mg Cap *Ptom) 100 mg PO BEDTIME [facility] Last Admin: 04/04/21 19:59 Dose: 100 mg Documented by: Ibuprofen (Ibuprofen 200 Mg Tab) 200 mg PO Q6H [facility] Last Admin: 04/05/21 13:32 Dose: 200 mg Documented by: Levothyroxine Sodium (Levothyroxine 50 Mcg Tab *Ptom) 50 mcg PO DAILY@0600 [facility] Last Admin: 04/05/21 04:59 Dose: 50 mcg Documented by: Lisinopril (Lisinopril 20 Mg Tab *Ptom) 20 mg PO DAILY [facility] Last Admin: 04/05/21 08:26 Dose: 20 mg Documented by: Mirtazapine (Mirtazapine 15 Mg Tab *Ptom) 15 mg PO BEDTIME [facility] Last Admin: 04/04/21 20:02 Dose: 15 mg Documented by: Morphine Sulfate (Morphine 2 Mg/Ml Syringe) 1 mg IVPUSH Q4H PRN PRN Reason: Pain (severe 7-10) (Famotidine [ Famotidine] 40 Mg Tab *Ptom 40 mg PO DAILY [facility] Last Admin: 04/05/21 08:25 Dose: 40 mg Documented by: (Potassium Chloride [Potassium Chloride] 20 Meq *Ptom 20 meq PO DAILY [facility] Last Admin: 04/05/21 08:26 Dose: 20 meq Documented by: Polyethylene Glycol (Polyethylene Glycol 3350 Powder 17 Gm Packet) 17 gm PO DAILY PRN PRN Reason: CONSTIPATION Simvastatin (Simvastatin 20 Mg Tab *Ptom) 20 mg PO BEDTIME [facility] Last Admin: 04/04/21 20:05 Dose: 20 mg Documented by: Sodium Chloride (Sodium Chloride 0.9% 10 Ml Syringe) 10 ml FLUSH ASDIRECTED PRN PRN Reason: Keep Vein Open Last Admin: 04/05/21 08:31 Dose: 10 ml Documented by: Tramadol HCl (Tramadol 50 Mg Tab) 50 mg PO Q8H PRN PRN Reason: Pain (moderate 4-6) Last Admin: 04/05/21 15:27 Dose: 50 mg Documented by: Discontinued Medications Acetaminophen (Acetaminophen 500 Mg Tab) 1,000 mg PO ONETIME ONE Stop: 04/01/21 16:58 Last Admin: 04/01/21 18:30 Dose: 1,000 mg Documented by: Amlodipine Besylate (Amlodipine 2.5 Mg Tab) 2.5 mg PO ONETIME ONE Stop: 04/02/21 08:57 Last Admin: 04/02/21 09:38 Dose: Not Given Documented by: Aspirin (Aspirin 81 Mg Tab.Chew) 81 mg PO ONETIME ONE Stop: 04/02/21 08:57 Last Admin: 04/02/21 09:37 Dose: 81 mg Documented by: Ceftriaxone Sodium (Ceftriaxone 1 Gm Vial) 1 gm IVPUSH NOW ONE Stop: 04/02/21 09:18 Last Admin: 04/02/21 09:37 Dose: 1 gm Documented by: Ceftriaxone Sodium (Ceftriaxone 1 Gm Vial) 1 gm IVPUSH Q24H [facility] Last Admin: 04/05/21 08:26 Dose: 1 gm Documented by: Famotidine (Famotidine 20 Mg Tab) 40 mg PO ONETIME ONE Stop: 04/02/21 08:57 Last Admin: 04/02/21 09:37 Dose: 40 mg Documented by: Sodium Chloride (Normal Saline) 1,000 mls @ 999 mls/hr IV .BOLUS ONE Stop: 04/01/21 17:48 Last Admin: 04/01/21 18:30 Dose: 999 mls/hr Documented by: Sodium Chloride (Normal Saline) 1,000 mls @ 999 mls/hr IV .BOLUS ONE Stop: 04/01/21 23:11 Last Admin: 04/02/21 06:54 Dose: 999 mls/hr Documented by: Potassium Chloride/Dextrose/Sod Cl (D5 1/2 Ns W/ 20 Meq/L Kcl) 1,000 mls @ 50 mls/hr IV ASDIRECTED [facility] Last Admin: 04/02/21 08:53 Dose: 50 mls/hr Documented by: Dextrose/Sodium Chloride (Dextrose 5%-1/4 Ns) 1,000 mls @ 75 mls/hr IV ASDIRECTED [facility] Sodium Chloride (Normal Saline) 1,000 mls @ 50 mls/hr IV ASDIRECTED [facility] Last Admin: 04/04/21 06:04 Dose: 50 mls/hr Documented by: *Q Meaningful Use (DIS) - VTE *Q VTE Mechanical Contraindications *Q: At Risk for Falls
--- NOTE | 2021-04-05 16:49 | PCM.DCSUM1 ---
Discharge Summary - Hospital Course HPI Initial Comments: Larisa presented to ER yesterday with back pain, and altered mental status. She is poor historian. She had L1 compression fracture on 02/28/21 at . Her PCP has been trying to get her into neurosurgery but has not seen so far. They had increased her Tramadol to 50 mg bid and added Mobic 7.5 mg daily but that order did not get over to [facility]. She has had poor appetite and oral intake due to pain, lays in bed on her back as that is position of comfort per her PCP and Olivia at [facility] both verified this. Unable to get review of systems due to historian. CT thoracic spine showed worsening of her L1 compression fracture with retropulsion of some fragments. She has been on hold in ER awaiting admission at [facility] for neurosurgery consult, thought they'd be able to take today but did not have open beds so Dr Haider asked to admit for IVF, IV antibiotics for UTI and pain management for her L1 fracture as did not know when they would be able to take her. Diagnosis: Stroke: No - Discharge Data Discharge Date: 04/05/21 Discharge Disposition: DC/Tfer to Acute Hospital 02 Condition: Stable - Referral to Home Health Primary Care Physician: Braulio Harding MD - Discharge Diagnosis/Problem(s) (1) Compression fracture of L1 lumbar vertebra SNOMED Code(s): 260493726, 868207297, 31435189443972279 ICD Code: S32.010A - WEDGE COMPRESSION FRACTURE OF FIRST LUMBAR VERTEBRA, INIT Status: Acute Current Visit: Yes (2) Cystitis SNOMED Code(s): 23415744 ICD Code: N30.90 - CYSTITIS, UNSPECIFIED WITHOUT HEMATURIA Status: Resolved Current Visit: No Problem Details: grew Staph epidermidis, completed 4 doses of Rocephin (3) Uncontrolled pain SNOMED Code(s): 61352154893697682 ICD Code: R52 - PAIN, UNSPECIFIED Status: Acute Current Visit: Yes (4) Low back pain SNOMED Code(s): 592777038 ICD Code: M54.5 - LOW BACK PAIN * DO NOT USE * Status: Acute Current Visit: No Qualifiers: Chronicity: unspecified Back pain laterality: right Sciatica presence: without sciatica (5) CKD (chronic kidney disease) SNOMED Code(s): 025514472 ICD Code: N18.9 - CHRONIC KIDNEY DISEASE, UNSPECIFIED Status: Chronic Current Visit: Yes Problem Details: Cr improved to 1.4 Qualifiers: Chronic kidney disease stage 3 subtype: stage 3b (GFR 30-44) (6) Elevated C-reactive protein (CRP) SNOMED Code(s): 933969721007569 ICD Code: R79.82 - ELEVATED C-REACTIVE PROTEIN (CRP) Status: Acute Current Visit: Yes (7) Diet-controlled diabetes mellitus SNOMED Code(s): 968921043, 949968215 ICD Code: E11.9 - TYPE 2 DIABETES MELLITUS WITHOUT COMPLICATIONS Status: Chronic Current Visit: Yes (8) Hypertension SNOMED Code(s): 71104598 ICD Code: I10 - ESSENTIAL (PRIMARY) HYPERTENSION Status: Chronic Current Visit: Yes (9) Sundowning SNOMED Code(s): 927197214, 765726412, 377798535 ICD Code: F05 - DELIRIUM DUE TO KNOWN PHYSIOLOGICAL CONDITION Status: Re solved Current Visit: Yes (10) Refuses to eat SNOMED Code(s): 783871689 ICD Code: R63.39 - OTHER FEEDING DIFFICULTIES Status: Resolved Current Visit: Yes (11) Poor fluid intake SNOMED Code(s): 171934631 ICD Code: R63.8 - OTHER SYMPTOMS AND SIGNS CONCERNING FOOD AND FLUID INTAKE Status: Resolved Current Visit: Yes (12) Moderate dehydration SNOMED Code(s): 3576424221129 ICD Code: E86.0 - DEHYDRATION Status: Resolved Current Visit: Yes (13) Elevated WBC count SNOMED Code(s): 733913319, 236518399 ICD Code: D72.829 - ELEVATED WHITE BLOOD CELL COUNT, UNSPECIFIED Status: Resolved Current Visit: Yes (14) Acute on chronic renal failure SNOMED Code(s): 198884385 ICD Code: N17.9 - ACUTE KIDNEY FAILURE, UNSPECIFIED; N18.9 - CHRONIC KIDNEY DISEASE, UNSPECIFIED Status: Resolved Current Visit: Yes Problem Details: - Patient Summary/Data Consults: Consultations 04/02/21 13:43 OT Evaluation and Treatment [CONS] Routine Please Evaluate and Treat. OT Reason for Consult: ADL's Special Instructions: L1 compression fx This query below is only for informational purposes and is not editable. Admission Diagnosis/Problem: Back pain PT Evaluation and Treatment [CONS] Routine Please Evaluate and Treat. PT Reason for Consult: Ambulation Special Instructions: L1 compression fx This query below is only for informational purposes and is not editable. Admission Diagnosis/Problem: Back pain Hospital Course: She was in ER on hold for transfer to for Neurosurgery for 24 hours when called back and was not able to take her, rather than keep in ER for another 24 hours she was admitted for observation care until transfer could be secured. She had UTI found in ER, was started on Rocephin, received 4 doses. Urine culture came back staph epidermidis, sensitive to cephalosporins. Her WBC was 15.9 in ER and came down to 9.1 on 04/03. Her CR in ER was 2.7 with IV fluids she came down to 1.4 on 04/04. She has been eating and drinking though sporadically. Her position of comfort for worsening L1 compression fracture with retropulsion of fragments is flat on her back, she will pivot transfer to bedside commode and reclining wheelchair for meals then wants to go right back to bed. She was independent, ambulating prior to her second fall on 04/01. She was started on Tylenol 500 mg with Ibuprofen 200 mg q6h scheduled with Tramadol 50 mg po q8h as needed, Morphine 1 mg IV q4h as needed for pain. Pain is tolerable in bed and she doesn't stay sitting up for long for toileting or meals. She was 3rd on wait list for today but called this afternoon and they still don't have open bed. Family asked that I check [facility] for availability. [facility] and spoke with Dr Gill, hospitalist on who did accept patient in transfer, we will hold patient here until bed opens up, may be tonight or tomorrow morning. Covid is negative. No new neuro deficits. - Patient Instructions Diet: Regular Diet as Tolerated Activity: Bedrest, May Use Bathroom Other/Special Instructions: Transfer to [facility] for neurosurgery/IR consult. - Discharge Plan *PRESCRIPTION DRUG MONITORING PROGRAM REVIEWED*: Not Applicable *COPY OF PRESCRIPTION DRUG MONITORING REPORT IN PATIENT NICKOLAS: Not Applicable Home Medications: Home Meds Aspirin [Halfprin] 81 mg PO DAILY 04/01/21 [History] Calcium Carbonate [Tums] 500 mg PO DAILY 04/01/21 [History] Calcium Cit/Mgox/Vit D3/B6/Min [Calcium Citrate Plus Tablet] 950 mg PO BID 04/01/21 [History] Cyanocobalamin (Vitamin B-12) [B-12] 1,000 mcg PO DAILY 04/01/21 [History] Diclofenac Sodium [Voltaren 1% Gel] 4 gm TOP QID 04/01/21 [History] Famotidine 20 mg PO DAILY 04/01/21 [History] Flaxseed/Omega3,6,9/Fatty Acid [Flax Seed Oil 1,300 mg Softgel] 1,000 mg PO DAILY 04/01/21 [History] Furosemide 20 mg PO DAILY 04/01/21 [History] Gabapentin [Neurontin] 100 mg PO BEDTIME 04/01/21 [History] Levothyroxine [Synthroid] 50 mcg PO ACBREAKFAST 04/01/21 [History] Mirtazapine [Remeron] 15 mg PO BEDTIME 04/01/21 [History] Potassium Chloride 20 meq PO DAILY 04/01/21 [History] Simvastatin [Zocor] 20 mg PO BEDTIME 04/01/21 [History] amLODIPine [Norvasc] 2.5 mg PO BEDTIME 04/01/21 [History] lisinopriL [Lisinopril] 20 mg PO DAILY 04/01/21 [History] polyethylene glycoL 3350 [MiraLAX] 17 gm PO DAILY 04/01/21 [History] Loperamide HCl [Imodium A-D] 2 mg PO BID PRN 04/02/21 [History] Magnesium Hydroxide [Milk of Magnesia] 30 ml PO DAILY PRN 04/02/21 [History] [place]-3/DHA/Epa/Fish Oil [[place]-3 Fish Oil 1,000 MG Sfgl] 2,000 mg PO DAILY 04/02/21 [History] Acetaminophen [Tylenol Extra Strength] 500 mg PO Q6H tablet 04/04/21 [Rx] Ibuprofen [Motrin] 200 mg PO Q6H tablet 04/04/21 [Rx] traMADol [Ultram] 50 mg PO Q8H PRN tablet 04/04/21 [Rx] Morphine 1 mg IVPUSH Q4H PRN syringe 04/05/21 [Rx] Oxygen Therapy Mode: Room Air Forms: ED Department Discharge Referrals: Braulio Harding MD [Primary Care Provider] - - Discharge Summary/Plan Comment DC Time >30 min.: No Total # of Minutes for Discharge Time: 20 min - General Info Date of Service: 04/05/21 Subjective Update: Larisa states pain is tolerable when in bed but worse when gets up to commode. Didn't want to eat breakfast today. No numbness and tingling in legs. No bowel/bladder incontinence. Her brother asked today if [facility] was not able to take her if we could check [facility]. - Patient Data Vitals - Most Recent: Last Vital Signs Temp 97.6 F 04/05/21 08:00 Pulse 81 04/05/21 12:00 Resp 16 04/05/21 12:00 BP 160/77 H 04/05/21 12:00 Pulse Ox 93 L 04/05/21 12:00 Weight - Most Recent: 175 lb 6 oz I&O - Last 24 hours: Intake & Output 04/05/21 04/05/21 04/05/21 06:59 14:59 22:59 Intake Total 173 Balance 173 Med Orders - Current: Current Medications Acetaminophen (Acetaminophen 500 Mg Tab) 500 mg PO Q6H [facility] Last Admin: 04/05/21 13:31 Dose: 500 mg Documented by: Amlodipine Besylate (Amlodipine 2.5 Mg Tab *Ptom) 2.5 mg PO BEDTIME [facility] Last Admin: 04/04/21 20:03 Dose: 2.5 mg Documented by: Aspirin (Aspirin 81 Mg Tab.Ec *Ptom) 81 mg PO DAILY [facility] Last Admin: 04/05/21 08:25 Dose: 81 mg Documented by: Gabapentin (Gabapentin 100 Mg Cap *Ptom) 100 mg PO BEDTIME [facility] Last Admin: 04/04/21 19:59 Dose: 100 mg Documented by: Ibuprofen (Ibuprofen 200 Mg Tab) 200 mg PO Q6H [facility] Last Admin: 04/05/21 13:32 Dose: 200 mg Documented by: Levothyroxine Sodium (Levothyroxine 50 Mcg Tab *Ptom) 50 mcg PO DAILY@0600 [facility] Last Admin: 04/05/21 04:59 Dose: 50 mcg Documented by: Lisinopril (Lisinopril 20 Mg Tab *Ptom) 20 mg PO DAILY [facility] Last Admin: 04/05/21 08:26 Dose: 20 mg Documented by: Mirtazapine (Mirtazapine 15 Mg Tab *Ptom) 15 mg PO BEDTIME [facility] Last Admin: 04/04/21 20:02 Dose: 15 mg Documented by: Morphine Sulfate (Morphine 2 Mg/Ml Syringe) 1 mg IVPUSH Q4H PRN PRN Reason: Pain (severe 7-10) (Famotidine [ Famotidine] 40 Mg Tab *Ptom 40 mg PO DAILY [facility] Last Admin: 04/05/21 08:25 Dose: 40 mg Documented by: (Potassium Chloride [Potassium Chloride] 20 Meq *Ptom 20 meq PO DAILY [facility] Last Admin: 04/05/21 08:26 Dose: 20 meq Documented by: Polyethylene Glycol (Polyethylene Glycol 3350 Powder 17 Gm Packet) 17 gm PO DAILY PRN PRN Reason: CONSTIPATION Simvastatin (Simvastatin 20 Mg Tab *Ptom) 20 mg PO BEDTIME [facility] Last Admin: 04/04/21 20:05 Dose: 20 mg Documented by: Sodium Chloride (Sodium Chloride 0.9% 10 Ml Syringe) 10 ml FLUSH ASDIRECTED PRN PRN Reason: Keep Vein Open Last Admin: 04/05/21 08:31 Dose: 10 ml Documented by: Tramadol HCl (Tramadol 50 Mg Tab) 50 mg PO Q8H PRN PRN Reason: Pain (moderate 4-6) Last Admin: 04/05/21 15:27 Dose: 50 mg Documented by: Discontinued Medications Acetaminophen (Acetaminophen 500 Mg Tab) 1,000 mg PO ONETIME ONE Stop: 04/01/21 16:58 Last Admin: 04/01/21 18:30 Dose: 1,000 mg Documented by: Amlodipine Besylate (Amlodipine 2.5 Mg Tab) 2.5 mg PO ONETIME ONE Stop: 04/02/21 08:57 Last Admin: 04/02/21 09:38 Dose: Not Given Documented by: Aspirin (Aspirin 81 Mg Tab.Chew) 81 mg PO ONETIME ONE Stop: 04/02/21 08:57 Last Admin: 04/02/21 09:37 Dose: 81 mg Documented by: Ceftriaxone Sodium (Ceftriaxone 1 Gm Vial) 1 gm IVPUSH NOW ONE Stop: 04/02/21 09:18 Last Admin: 04/02/21 09:37 Dose: 1 gm Documented by: Ceftriaxone Sodium (Ceftriaxone 1 Gm Vial) 1 gm IVPUSH Q24H [facility] Last Admin: 04/05/21 08:26 Dose: 1 gm Documented by: Famotidine (Famotidine 20 Mg Tab) 40 mg PO ONETIME ONE Stop: 04/02/21 08:57 Last Admin: 04/02/21 09:37 Dose: 40 mg Documented by: Sodium Chloride (Normal Saline) 1,000 mls @ 999 mls/hr IV .BOLUS ONE Stop: 04/01/21 17:48 Last Admin: 04/01/21 18:30 Dose: 999 mls/hr Documented by: Sodium Chloride (Normal Saline) 1,000 mls @ 999 mls/hr IV .BOLUS ONE Stop: 04/01/21 23:11 Last Admin: 04/02/21 06:54 Dose: 999 mls/hr Documented by: Potassium Chloride/Dextrose/Sod Cl (D5 1/2 Ns W/ 20 Meq/L Kcl) 1,000 mls @ 50 mls/hr IV ASDIRECTED [facility] Last Admin: 04/02/21 08:53 Dose: 50 mls/hr Documented by: Dextrose/Sodium Chloride (Dextrose 5%-1/4 Ns) 1,000 mls @ 75 mls/hr IV ASDIRECTED [facility] Sodium Chloride (Normal Saline) 1,000 mls @ 50 mls/hr IV ASDIRECTED [facility] Last Admin: 04/04/21 06:04 Dose: 50 mls/hr Documented by: - Exam General: Reports: Alert, Oriented, Cooperative, No Acute Distress (laying in bed, on her back.) Lungs: Reports: Clear to Auscultation, Normal Respiratory Effort, Decreased Breath Sounds (bases). Denies: Crackles, Wheezing Cardiovascular: Reports: Regular Rate, Regular Rhythm GI/Abdominal Exam: Normal Bowel Sounds, Soft, Non-Tender, No Distention (Female) Exam: Deferred Rectal (Female) Exam: Deferred Skin: Reports: Warm, Dry, Intact, Other (Abrasion to right forehead, right maxilla, right upper lip, healing.) Neurological: Reports: No New Focal Deficit *Q Meaningful Use (DIS) - VTE *Q VTE Mechanical Contraindications *Q: At Risk for Falls
[2021-04-05 20:02] VITALS: BP 155/80; PULSE 85
[2021-04-05] MEDS: amLODIPine 2.5 MG Tab *PTOM PO SCH (20:07)
[2021-04-05] MEDS ORDERED: Gabapentin 100 MG Cap PO ONE (20:09)
[2021-04-05] MEDS: Gabapentin 100 MG Cap *PTOM PO SCH (20:10)
[2021-04-05] MEDS: Simvastatin 20 MG Tab *PTOM PO SCH (20:14)
== END 2021-04-05 20:35 ==
LOC: FB.ED 14:48 → FB.MS 04-02 11:59
PROVIDERS: ADMIT Family Medicine; ATTEND Family Medicine
DX: S32.010A Wedge compression fracture of first lumbar vertebra, initial encounter for closed fracture (principal); R41.82 Altered mental status, unspecified; E78.00 Pure hypercholesterolemia, unspecified; I12.9 Hypertensive chronic kidney disease with stage 1 through stage 4 chronic kidney disease, or unspecified chronic kidney disease; N18.30 Chronic kidney disease, stage 3 unspecified; E11.22 Type 2 diabetes mellitus with diabetic chronic kidney disease; E03.9 Hypothyroidism, unspecified; N17.9 Acute kidney failure, unspecified; D72.829 Elevated white blood cell count, unspecified; E86.0 Dehydration; R63.39 Other feeding difficulties; N39.0 Urinary tract infection, site not specified; Z20.822 Contact with and (suspected) exposure to COVID-19; Z79.899 Other long term (current) drug therapy; Z79.82 Long term (current) use of aspirin; Z79.890 Hormone replacement therapy; Z87.891 Personal history of nicotine dependence
CPT/HCPCS: 36415; 71045; 72128; 80048; 80053; 81001; 84484; 85025; 86140; 87086; 87088; 87186; 96374; 96376; 99285-25; A9270-GY; G0378; J0696; J3480; J7030; U0002